=== PATIENT | female | born 1955 | race Caucasian/White ===

== ENCOUNTER 2019-09-09 14:56 | Outpatient (CLI) | payer OTHER, SELFPAY ==
--- NOTE | ~2019-09-09 | MR_ITS ---
EXAMINATION: MR thoracic spine wo/w con EXAM DATE: 09/09/2019 16:41 INDICATION: Cervical thoracic radiculopathy. TECHNIQUE: Multi-sequential, multiplanar MR images of the thoracic spine were obtained without contra st. Sagittal T1, T2, T2 fat saturation, axial T2 weighted images reviewed. Axial T1 weighted sequenc e. Patient was then injected with 10 mL Multihance intravenous contrast and reimaged. Postcontrast axial and sagittal T1-weighted fat saturation sequences were obtained. No prior study. FINDINGS: There is mild thoracic disc disease and facet arthropathy. The central canal and neural for amen are widely patent. The spinal cord signal intensity and intrinsic morphology is normal. Paraspin al soft tissue is unremarkable. There are no suspicious marrow signal abnormalities. The vertebral ysabel dies are aligned in the AP dimension. IMPRESSION: Mild thoracic spondylosis. Reviewed, dictated and finalized at location A. TIONAL PSYCHOLOGIST IMPRESSION: Mild thoracic spondylosis.
--- NOTE | ~2019-09-09 | MR_ITS ---
EXAMINATION: MR cervical spine wo/w con EXAM DATE: 09/09/2019 16:41 INDICATION: Neck pain. TECHNIQUE: Multi-sequential, multiplanar MR images of the cervical spine were obtained without contra st. Axial T2, axial T2 MERGE sequence. Sagittal T1, T2, T2 fat saturation images also obtained. Axi al T1 weighted sequence. Patient was then injected with 10 mL Multihance intravenous contrast and re imaged. Postcontrast axial and sagittal T1-weighted fat saturation sequences were obtained. There is no prior study for comparison. FINDINGS: There is moderate disc disease at C5-6, with 2 mm retrolisthesis. The vertebral body and d isc heights are otherwise well maintained. There is 2 mm anterolisthesis C6 on C7 and C7 on T1. There are 2 hemangiomas in the T1 vertebral body. Paraspinal soft tissue is unremarkable. The spinal cord signal intensity and intrinsic morphology is normal. Cervicomedullary junction is normal in appearanc e. There are no areas of abnormal enhancement on the post contrast images. Level by level evaluation: C2-C3: Disc does not extend beyond the endplate margin. Uncovertebral joint arthropathy: None. Facet joint arthropathy: Mild bilateral. Neural foraminal stenosis: No stenosis. Central canal stenosis: No stenosis. C3-C4: Disc does not extend beyond the endplate margin. Uncovertebral joint arthropathy: Mild right. Facet joint arthropathy: Mild to moderate right, mild left. Neural foraminal stenosis: Mild right. Central canal stenosis: No stenosis. C4-C5: Disc does not extend beyond the endplate margin. Uncovertebral joint arthropathy: Minimal bilateral. Facet joint arthropathy: Mild bilateral. Neural foraminal stenosis: No stenosis. Central canal stenosis: No stenosis. C5-C6: There is a mild diffuse disc bulge. Uncovertebral joint arthropathy: Moderate right, mild to moderate left. Facet joint arthropathy: Mild bilateral. Neural foraminal stenosis: Moderate right, mild to moderate left. Central canal stenosis: Mild. C6-C7: Disc does not extend beyond the endplate margin. Uncovertebral joint arthropathy: Mild bilateral. Facet joint arthropathy: Mild bilateral. Neural foraminal stenosis: Mild bilateral. Central canal stenosis: No stenosis. C7-T1: Disc does not extend beyond the endplate margin. Uncovertebral joint arthropathy: None. Facet joint arthropathy: Mild bilateral. Neural foraminal stenosis: Mild bilateral. Central canal stenosis: No stenosis. IMPRESSION: 1. C5-6 moderate disc disease and right neural foraminal stenosis. 2. Otherwise relatively mild cervical spondylosis. Reviewed, dictated and finalized at location B. ND OF THE COURT
[2019-09-09 15:39] LABS: Blood Urea Nitrogen 23 mg/dL (8-26); Estimated Glomerular Filt Rate > 60
== END 2019-09-09 14:57 | disposition home or self-care (01) ==
DX: M54.12 Radiculopathy, cervical region (principal); M54.14 Radiculopathy, thoracic region; M50.822 Other cervical disc disorders at C5-C6 level; M48.02 Spinal stenosis, cervical region; M47.812 Spondylosis without myelopathy or radiculopathy, cervical region; M47.814 Spondylosis without myelopathy or radiculopathy, thoracic region
CPT/HCPCS: 72156; 72157; A9577

== ENCOUNTER 2019-09-10 08:32 | Outpatient (CLI) | payer OTHER, SELFPAY ==
[2019-09-10 09:26] LABS: Add Urine Microscopic? YES; Appearance Urine Clear (Clear); Bilirubin Urine Negative (Negative); Blood Urine 1+ (Negative); Color Urine Straw (Yellow); Glucose Urine UA Negative (Negative); Ketones Urine Negative (Negative); Leukocyte Esterase Ur 3+ LEU/UL (Negative); Mucus Urine Rare /lpf; Nitrate Urine Negative (Negative); Protein Urine Negative (Negative); Specific Grav Ur 1.011 (1.001-1.035); Squamous Epithelial Cell Urine Rare /hpf (Few); Transitional Epi Cells Urine Rare /hpf (None Seen); Urobilinogen Urine Negative mg/dL (<2.0)
[2019-09-10 09:34] LABS: Basophils Percent Auto 0.4 % (0.2-1.2); Eosinophils Absolute Auto 0.4 K/mm3 (0-0.3); Eosinophils Percent Auto 5.5 % (0-4.4); Hematocrit 47.5 % (37.0-47.0); Hemoglobin 15.2 g/dL (12.0-15.0); Immature Granulocyte Absolute 0.03 K/mm3 (0.00-0.031); Immature Granulocyte Percent A 0.4 % (0-0.5); Lymphocytes Absolute Auto 2.13 K/mm3 (0.9-3.2); Lymphocytes Percent Auto 30.1 % (18.3-44.2); Mean Corpuscular Hemoglobin 29.9 pg (26-34); Mean Corpuscular Volume 93.5 fl (80-100); Mean Platelet Volume 10.9 fl (7.4-10.4); Monocytes Absolute Auto 0.4 K/mm3 (0.1-0.6); Monocytes Percent Auto 5.9 % (2.6-8.5); Neutrophils Absolute Auto 4.1 K/mm3 (1.3-6.7); Neutrophils Percent Auto 57.7 % (45.5-73.1); Platelet Count Result 262 k/mm3 (150-375); Red Blood Count 5.08 M/mm3 (4.2-5.4); Red Cell Distribution Width 13.1 % (11.5-14.5); White Blood Count 7.1 K/mm3 (4.5-10.0)
[2019-09-10 09:37] LABS: Alanine Aminotransferase 15 U/L (4-35); Albumin Level 4.1 g/dL (3.5-5.1); Alkaline Phosphatase 75 U/L (38-126); Aspartate Amino Transferase 25 U/L (14-36); Bilirubin,Total 0.8 mg/dL (0.2-1.3); Blood Urea Nitrogen 20 mg/dL (7-17); CRP < 0.5 mg/dL (<1.0); Calcium 9.4 mg/dL (8.4-10.2); Carbon Dioxide 31 mmol/L (22-30); Chloride 100 mmol/L (98-107); Cholesterol 200 mg/dL (0-200); Estimated Glomerular Filt Rate > 60; Glucose 84 mg/dL (65-105); HDL Direct 51 mg/dL; Sodium 139 mmol/L (137-145); Triglycerides 101 mg/dL (<150)
[2019-09-10 09:41] LABS: Immunoglobulin G 671 mg/dL (700-1600)
[2019-09-10 09:46] LABS: LDL Cholesterol Direct 125 mg/dL
[2019-09-10 10:05] LABS: Thyroid Stimulating Hormone 0.935 uIU/mL (0.465-4.680)
[2019-09-10 10:22] LABS: Rheumatoid Factor < 8.6 IU/ML (<12)
[2019-09-10 11:01] LABS: Erythrocyte Sedimentation Rate 4 mm/hr (0-20)
[2019-09-15 06:55] LABS: ANA Cascade Screen Positive (Negative)
[2019-09-15 10:06] LABS: Chromatin (Nucleosomal) Ab <1.0; Chromatin Antibody Charge YES; DNA (ds) Antibody Charge YES; RNP Antibody <1.0; RNP Antibody Charge YES; Sm Antibody <1.0; Sm Antibody Charge YES; Sm/RNP Antibody <1.0; Sm/RNP Antibody Charge YES
== END 2019-09-10 08:33 | disposition home or self-care (01) ==
PROVIDERS: PCP Family Medicine Sports Medicine; Visit Provider Family Medicine Sports Medicine
DX: E78.2 Mixed hyperlipidemia (principal); I10 Essential (primary) hypertension; G47.00 Insomnia, unspecified
CPT/HCPCS: 36415; 80053; 80061; 81001; 82784; 84443; 85025; 85652; 86038; 86140; 86225; 86235; 86430; 87086

== ENCOUNTER 2022-08-05 11:02 | Outpatient (CLI) | payer MEDICARE, SELFPAY ==
[2022-08-05 11:50] LABS: Hematocrit 44.4 % (37.0-47.0); Hemoglobin 14.6 g/dL (12.0-15.0); Mean Corpuscular HGB Conc 32.9 g/dl (32-36); Mean Corpuscular Volume 94.3 fl (80-100); Mean Platelet Volume 10.3 fl (7.4-10.4); Platelet Count Result 294 k/mm3 (150-375); Red Blood Count 4.71 M/mm3 (4.2-5.4); Red Cell Distribution Width 12.9 % (11.5-14.5); White Blood Count 9.3 K/mm3 (4.5-10.0)
[2022-08-05 11:57] LABS: Alanine Aminotransferase 17 U/L (6-35); Alkaline Phosphatase 91 U/L (38-126); Anion Gap 4 mmol/L (8-16); Aspartate Amino Transferase 27 U/L (14-36); Bilirubin,Total 0.4 mg/dL (0.2-1.3); Blood Urea Nitrogen 15 mg/dL (7-17); Calcium 8.7 mg/dL (8.4-10.2); Carbon Dioxide 27 mmol/L (22-30); Chloride 108 mmol/L (98-107); Estimated Glomerular Filt Rate > 60; Glucose 79 mg/dL (65-110); Potassium 4.1 mmol/L (3.4-5.0); Sodium 139 mmol/L (137-145)
[2022-08-08 18:04] LABS: Gliadin AB, IgG <1.0 U/mL (<15.0); TTG IGA AB <1.0 U/mL (<15.0)
== END 2022-08-05 11:03 | disposition home or self-care (01) ==
PROVIDERS: PCP Family Medicine Sports Medicine; Visit Provider Nurse Practitioner
DX: R13.10 Dysphagia, unspecified (principal); R14.0 Abdominal distension (gaseous); K21.9 Gastro-esophageal reflux disease without esophagitis; R10.31 Right lower quadrant pain; R10.32 Left lower quadrant pain
CPT/HCPCS: 36415; 80053; 83516; 85027; 86255

== ENCOUNTER 2022-09-05 00:41 | Day surgery (SDC) | payer MEDICARE, SELFPAY ==
[2022-08-28 13:35] VITALS: BMI 27.3
[2022-09-05 11:33] VITALS: BP 147/98; PULSE 85; RESP 20; TEMP 36.3; O2SAT 98
[2022-09-05] MEDS: LACTATED RINGERS 1,000 ML 150 ML IV CONT (11:49)
--- NOTE | 2022-09-05 11:53 | WPDANESEPPF ---
Anes - Initial Pre Proc Eval Procedure: Operation Date: 09/05/22 13:00 Proposed Procedures p Esophagogastroduodenoscopy & Colonoscopy - Jewel Bunn MD Date/Time: 09/05/22 11:53 Surgeon: Jewel Bunn MD Pre Op Diagnosis: LLQP, RLQP, abd.distension,dysphagia Patient Data Age: 67 Gender: F Height: 1.6 m Weight: 66.3 kg Last Vital Signs Temp 36.3 C L 09/05/22 11:33 Pulse 85 09/05/22 11:33 Resp 20 09/05/22 11:33 BP 147/98 H 09/05/22 11:33 Pulse Ox 98 09/05/22 11:33 O2 Del Method Room Air 09/05/22 11:33 Allergies Allergy/AdvReac Type Severity Reaction Status Date / Time No Known Allergies Allergy Verified 09/05/22 11:32 Home Medications Medication Instructions Recorded Confirmed Type albuterol sulfate 8 mg 8 mg PO Q12H 08/05/22 08/28/22 History tablet,extended release,12 hr dicyclomine 20 mg tablet 20 mg PO QID #120 tabs 08/05/22 08/28/22 Rx gabapentin 600 mg tablet 600 mg PO DAILY 08/05/22 08/28/22 History hydrocodone bitartrate 10 mg 10 mg PO Q12H 08/05/22 08/28/22 History capsule, oral only, extended rel 12 hr ibuprofen 800 mg tablet 800 mg PO .prn 08/05/22 08/28/22 History lisinopril 10 mg tablet 10 mg PO DAILY 08/05/22 08/28/22 History lovastatin 40 mg tablet 40 mg PO DAILY 08/05/22 08/28/22 History omeprazole 40 mg capsule,delayed 40 mg PO DAILY #30 caps 08/05/22 08/28/22 Rx release Patient hx anesthesia problems: none Family hx anesthesia problems: none Results Review: All pre-operative results and documents have been reviewed as part of the pre-operative evaluation. [facility] Past Medical History Medical History Abdominal distension Bilateral lower abdominal cramping Dysphagia GERD (gastroesophageal reflux disease) Hypertension Obesity Oropharyngeal dysphagia Tobacco abuse Surgical History Surgical History History of tonsillectomy Family History Family History Mother Hypertension Heart disease Social History Social History Smoking packs per day: 0.5 Smoking cigarettes per day: 10.0 Years smoked: 30 Smoking pack-years: 15.00 Smoking status: Current every day smoker Tobacco type: cigarettes Second hand tobacco smoke exposure: Yes Alcohol intake: never Substance use: current Substance use type: marijuana Living arrangements: alone Occupation/Education: occupation Gender identity (if verbalized by the patient): Female Spiritual care concerns: No Anes - Eval Final PreProcedure Day of Procedure 09/05/22 11:53 Patient weight: overweight Heart: regular rate and rhythm Lungs: clear to auscultation Airway: Mallampati scale class II Neurological: alert and oriented Last oral intake: >/= 8 hours ASA classification: III Emergent: no Anesthetic plan: proceed Anesthesia type and monitoring: general GIVS and standard monitoring Results Review: All pre-operative results and documents have been reviewed as part of the pre-operative evaluation. Informed Consent: The patient's anesthetic plan and its attendant risks and benefits were discussed with the patient/family/POA. Questions were solicited and answers provided to the satisfaction of the patient/family/POA.
--- NOTE | 2022-09-05 12:36 | WPDHPUPDATE1 ---
History and Physical Update Update Date/Time: 09/05/22 12:36 History and Physical has been reviewed, including an updated exam of the patient. There are NO changes in the patient's condition. Risks, benefits, and alternatives have been discussed and questions answered. Patient agrees to proceed with procedure.
--- NOTE | 2022-09-05 12:58 | SUR.OPER ---
egd ended at 1252, colonoscopy begun at 1257.
[2022-09-05 13:09] VITALS: BP 132/91; PULSE 95; RESP 16; O2SAT 96
[2022-09-05 13:19] VITALS: BP 109/70; PULSE 90; RESP 20; O2SAT 98
[2022-09-05 13:29] VITALS: BP 104/87; PULSE 90; RESP 22; O2SAT 100
== END 2022-09-05 13:45 | disposition home or self-care (01) ==
PROVIDERS: PCP Family Medicine Sports Medicine; Visit Provider Internal Medicine Gastroenterology
PROC: 0DJ08ZZ Inspection of Upper Intestinal Tract, Via Natural or Artificial Opening Endoscopic (ICD-10-PCS; CPT 43235; principal; 2022-09-05 13:00)
DX: Z12.11 Encounter for screening for malignant neoplasm of colon (principal); K57.30 Diverticulosis of large intestine without perforation or abscess without bleeding; K64.8 Other hemorrhoids; K64.4 Residual hemorrhoidal skin tags; R10.30 Lower abdominal pain, unspecified; R13.10 Dysphagia, unspecified; K21.9 Gastro-esophageal reflux disease without esophagitis; Z79.51 Long term (current) use of inhaled steroids; I10 Essential (primary) hypertension; F17.210 Nicotine dependence, cigarettes, uncomplicated; F12.90 Cannabis use, unspecified, uncomplicated
CPT/HCPCS: 43239; G0121; 88305; J2704; J7120

== ENCOUNTER 2022-11-07 09:36 | Outpatient (CLI) | payer MEDICARE, SELFPAY ==
--- NOTE | ~2022-11-07 | XR_ITS ---
MODIFIED ESOPHAGRAM HISTORY: Dysphagia. TECHNIQUE: Modified barium esophagram was performed by speech pathologist under radiologist fluorosco pic guidance. This was recorded on tape. The exam was reviewed on 11/07/2022 10:54 CDT. The DAP for this procedure was 1.655 Gycm2. Fluoroscopy time is 2 minutes. FINDINGS: Lateral projection of the cervical spine demonstrates normal cervical alignment.. There a re episodes of penetration with thin liquids. No aspiration identified.. 20 one images. IMPRESSION: 1: Laryngeal penetration without aspiration with thin liquids. 2: Please refer to speech pathologist report for additional detail. Reviewed, dictated and finalized at location A.
--- NOTE | 2022-11-07 15:27 | REHSTMBS ---
Assessment and note entered by Salima Arias, MACHINE I ENGRAVER Modified Barium Swallow Evaluation Feeding Type Recommended Oral Food Consistency Regular, Level 7 Liquid Consistency Thin (0) ST Clinical Summary MODIFIED BARIUM SWALLOW STUDY This patient was seen for a Modified Barium Swallow study at the request of her physician. Patient reports sometimes becoming choked when eating or drinking. The patient was presented with thin liquid per spoon, cup, and straw, applesauced mixed with semis-olid contrast medium, and then brian cracker pieces and fruit pieces both coated with the semi-solid mixture. Patient exhibited adequate swallows on all consistencies except for inconsistent trace penetration into the airway on uncontrolled thin liquid with cough reflex present. Head flexion prevented further penetration. Patient was instructed in the use of head flexion to facilitate the prevention of penetration. She does not appear to have significant enough issues to warrant direct Speech Therapy however if patient and physician both feel patient is ready for swallowing strengthening exercises, it may be ordered. Thank you for this referral.
== END 2022-11-07 09:37 | disposition home or self-care (01) ==
PROVIDERS: PCP Family Medicine Sports Medicine; Visit Provider Nurse Practitioner
DX: R13.12 Dysphagia, oropharyngeal phase (principal)
CPT/HCPCS: 92611

== ENCOUNTER 2024-05-20 10:24 | Inpatient (IN) | payer MEDICARE, SELFPAY ==
--- NOTE | ~2024-05-20 | CT_ITS ---
EXAMINATION: CT abdomen pelvis w con DATE: 05/20/2024 13:29 INDICATION: Upper abdominal pain. TECHNIQUE: Computed tomography (CT) of the abdomen and pelvis was performed with 100 mL Omnipaque 350 intravenous contrast. Automated exposure control and iterative reconstruction technique were employe d. The dose-length product was 501.05 mGy-cm. COMPARISON: None. FINDINGS: The visualized portions of the lung bases demonstrate mild atelectasis. A calcified right l robert nodule is consistent with old granulomatous disease. No pleural effusion. The heart size is jeffery l. No pericardial effusion. The liver and gallbladder are normal. Calcifications in the spleen are co nsistent with old granulomatous disease. The pancreas and adrenal glands are normal. There are cysts in the kidneys measuring up to 10 mm on the right. There is a striated nephrogram in left kidney, con sistent with pyelonephritis. There are bilateral inguinal hernias containing fat. There is diverticul osis of the colon without evidence of diverticulitis. There are no dilated loops of bowel. The append ix is normal. There is calcified atherosclerosis of the aorta and many of the other arteries. There a re no pathologically enlarged lymph nodes. There is no free intraperitoneal fluid. There is mild thor acic and lumbar spondylosis. IMPRESSION: 1. Left-sided acute pyelonephritis. Reviewed, dictated and finalized at location B.
[2024-05-20 10:36] VITALS: BP 126/80; PULSE 103; RESP 16; TEMP 36.6; O2SAT 95
--- NOTE | 2024-05-20 12:12 | ED_ITS ---
HPI - Abdominal Pain General Chief Complaint: Abdominal Pain Stated Complaint: abd pain Time Seen by Provider: 05/20/24 12:12 Focused HPI: This is a 69 year old female that presents to the ER for abdominal pain and nausea. Reports ongoing over the last 2 weeks. She has been treated for UTI with several antibiotics with little relief. Denies fever, dysuria, or vomiting GENERAL: Well-appearing, well-nourished, and in no acute distress. HEAD: Normocephalic, atraumatic. CHEST: No respiratory distress. HEART: Regular rate NEURO: ?Alert and oriented x3. Patient screened in triage and initial orders placed.? ?Additional care and disposition to be based upon?diagnostic testing and treatment. Related Data Home Medications Medication Instructions Recorded Confirmed gabapentin 600 mg tablet 600 mg PO DAILY 08/05/22 01/29/24 hydrocodone bitartrate 10 mg 10 mg PO Q12H 08/05/22 01/29/24 capsule, oral only, extended rel 12 hr ibuprofen 800 mg tablet 800 mg PO .prn 08/05/22 01/29/24 lisinopril 10 mg tablet 10 mg PO DAILY 08/05/22 01/29/24 albuterol sulfate 0.63 mg/3 mL 0.63 mg inhalation Q6H 01/29/24 01/29/24 solution for nebulization Allergies Allergy/AdvReac Type Severity Reaction Status Date / Time No Known Allergies Allergy Verified 01/29/24 11:34 [facility] Past Medical History Medical History Abdominal distension Abnormal barium swallow Bilateral lower abdominal cramping Colon cancer screening Diverticulosis Dysphagia GERD (gastroesophageal reflux disease) Hypertension IBS (irritable bowel syndrome) Lymphadenopathy of right cervical region Obesity Oropharyngeal dysphagia Tobacco abuse Surgical History Surgical History History of tonsillectomy Family History Family History Mother Hypertension Heart disease Diabetes mellitus Sibling Cancer Social History Social History Smoking packs per day: 0.5 Smoking cigarettes per day: 10.0 Years smoked: 30 Smoking pack-years: 15.00 Smoking status: Current every day smoker Tobacco type: cigarettes Second hand tobacco smoke exposure: Yes Alcohol intake: never Substance use: current Substance use type: marijuana Living arrangements: alone Occupation/Education: occupation Gender identity (if verbalized by the patient): Female Spiritual care concerns: No Course Vital Signs Vital signs: Vital Signs Temperature 97.8 F 05/20/24 10:36 Pulse Rate 103 H 05/20/24 10:36 Respiratory Rate 16 05/20/24 10:36 Blood Pressure 126/80 05/20/24 10:36 Pulse Oximetry 95 05/20/24 10:36 Oxygen Delivery Room Air 05/20/24 10:36 Temperature 97.8 F 05/20/24 10:36 Pulse Rate 103 H 05/20/24 10:36 Respiratory Rate 16 05/20/24 10:36 Blood Pressure 126/80 05/20/24 10:36 Pulse Oximetry 95 05/20/24 10:36 Oxygen Delivery Room Air 05/20/24 10:36 Discharge Plan Discharge Instructions: Antibiotic Form Prescriptions: No Action hydrocodone bitartrate 10 mg capsule, oral only, ER 12hr 10 mg PO Q12H gabapentin 600 mg tablet 600 mg PO DAILY Patient Comments: pt states tid as needed lisinopril 10 mg tablet 10 mg PO DAILY ibuprofen 800 mg tablet 800 mg PO .prn albuterol sulfate 0.63 mg/3 mL solution for nebulization 0.63 mg inhalation Q6H omeprazole 40 mg capsule,delayed release(DR/EC) 40 mg PO BID Qty: 60 3RF doxycycline hyclate 100 mg capsule 100 mg PO BID Qty: 14 0RF ondansetron 4 mg tablet,disintegrating See Rx Instructions .ROUTE .COMPLEX Qty: 20 0RF Dose Instruction: DISSOLVE 1 TABLET ON THE TONGUE EVERY 6 HOURS NEEDED FOR NAUSEA OR VOMITING Rx Instructions: DISSOLVE 1 TABLET ON THE TONGUE EVERY 6 HOURS NEEDED FOR NAUSEA OR VOMITIN G Follow-up/Referrals: Cassidy,Doug Allen MD [Primary Care Provider] -
--- NOTE | 2024-05-20 12:22 | ED.ABDPAIN ---
HPI - Abdominal Pain General Chief Complaint: Abdominal Pain Stated Complaint: abd pain Time Seen by Provider: 05/20/24 12:12 Source: patient and family Mode of arrival: ambulatory Limitations: no limitations History of Present Illness HPI narrative: 69 years old white female came to the ED by private car complaining of suprapubic pain, right lower quadrant pain associated with nausea started 3 months ago was seen by family physician, diagnosis of urinary tract infection, no improvement after 2 courses of antibiotic. Started yesterday on amoxicillin. History of hypertension, hyperlipidemia, cigarette smoking, denies any history of abdominal surgery. Related Data Home Medications Medication Instructions Recorded Confirmed gabapentin 600 mg tablet 600 mg PO DAILY 08/05/22 01/29/24 hydrocodone bitartrate 10 mg 10 mg PO Q12H 08/05/22 01/29/24 capsule, oral only, extended rel 12 hr ibuprofen 800 mg tablet 800 mg PO .prn 08/05/22 01/29/24 lisinopril 10 mg tablet 10 mg PO DAILY 08/05/22 01/29/24 albuterol sulfate 0.63 mg/3 mL 0.63 mg inhalation Q6H 01/29/24 01/29/24 solution for nebulization Allergies Allergy/AdvReac Type Severity Reaction Status Date / Time No Known Allergies Allergy Verified 01/29/24 11:34 Review of Systems Review of Systems: All systems reviewed & are unremarkable except as noted in HPI and below PMFSH Past Medical History Medical History Abdominal distension Abnormal barium swallow Bilateral lower abdominal cramping Colon cancer screening Diverticulosis Dysphagia GERD (gastroesophageal reflux disease) Hypertension IBS (irritable bowel syndrome) Lymphadenopathy of right cervical region Obesity Oropharyngeal dysphagia Tobacco abuse Surgical History Surgical History History of tonsillectomy Family History Family History Mother Hypertension Heart disease Diabetes mellitus Sibling Cancer Social History Social History Smoking packs per day: 0.5 Smoking cigarettes per day: 10.0 Years smoked: 30 Smoking pack-years: 15.00 Smoking status: Current every day smoker Tobacco type: cigarettes Second hand tobacco smoke exposure: Yes Alcohol intake: never Substance use: current Substance use type: marijuana Living arrangements: alone Occupation/Education: occupation Gender identity (if verbalized by the patient): Female Spiritual care concerns: No Exam Narrative: General appearance: Well-developed, well-nourished Skin: Normal color Head: Normocephalic, nontraumatic Eyes: Clear conjunctiva ENT: Oropharynx normal, ears normal, nose normal Neck: Supple, nontender Chest and respiratory: Airway patent, no respiratory distress, no accessory muscle use Heart: Regular rate/rhythm Abdomen: Soft, suprapubic tenderness, right lower quadrant tenderness, no guarding or rebound r, no organomegaly, quiet bowel sounds Vascular: Normal peripheral pulses, normal capillary refill. Musculoskeletal: Normal range of motion, nontender back Neurologic: Alert and oriented ?3, TELEGRAPHIC INSTRUMENT SUPERVISOR is normal as tested, no gross motor deficit Course Vital Signs Vital signs: Vital Signs Temperature 36.6 C 05/20/24 10:36 Pulse Rate 103 H 05/20/24 10:36 Respiratory Rate 16 05/20/24 10:36 Blood Pressure 126/80 05/20/24 10:36 Pulse Oximetry 95 05/20/24 10:36 Oxygen Delivery Room Air 05/20/24 10:36 Temperature 36.6 C 05/20/24 10:36 Pulse Rate 62 05/20/24 13:54 Respiratory Rate 16 05/20/24 13:54 Blood Pressure 119/63 05/20/24 13:54 Pulse Oximetry 98 05/20/24 13:54 Oxygen Delivery Room Air 05/20/24 10:36 MDM - Abdominal Pain MDM Narrative Medical decision making narrative: Patient presents with suprapubic and right lower quadrant pain Vital signs showing heart rate of 103, Physical examination showing tenderness right lower quadrant and suprapubic area Differential diagnosis include urinary tract infection, appendicitis, diverticulitis, colitis, constipation, or kidney stone Blood workup today showed WBC of 14.0 Urinalysis showed evidence of infection Patient started on Rocephin IV, Admit to hospitalist for pyelonephritis, failed outpatient treatment Differential Diagnosis Differential diagnosis: Likely other (As above) Medical Records Attestation: I reviewed the patient's medical records. Lab Data Attestation: I reviewed the patient's lab results. 05/20/24 12:30 05/20/24 12:30 Labs: Lab Results 05/20/24 05/20/24 Range/Units 12:30 12:50 WBC 14.0 H (4.5-10.0) K/mm3 RBC 4.51 (4.2-5.4) M/mm3 Hgb 14.2 (12.0-15.0) g/dL Hct 41.6 (37.0-47.0) % MCV 92.2 (80-100) fl MCH 31.5 (26-34) pg MCHC 34.1 (32-36) g/dl RDW 13.1 (11.5-14.5) % Plt Count 326 (150-375) k/mm3 MPV 9.9 (7.4-10.4) fl Immature Gran % (Auto) 0.6 H (0-0.5) % Neut % (Auto) 75.2 H (45.5-73.1) % Lymph % (Auto) 15.7 L (18.3-44.2) % [place] % (Auto) 7.9 (2.6-8.5) % Eos % (Auto) 0.3 (0-4.4) % Baso % (Auto) 0.3 (0.2-1.2) % Lymph # (Auto) 2.20 (0.9-3.2) K/mm3 [place] # (Auto) 1.1 H (0.1-0.6) K/mm3 Eos # (Auto) 0.0 (0-0.3) K/mm3 Baso # (Auto) 0.0 (0.0-0.1) K/mm3 Abs Immat Gran (auto) 0.08 H (0.00-0.031) K/mm3 Absolute Neuts (auto) 10.5 H (1.3-6.7) K/mm3 Absolute Nucleated RBC 0.000 (0.0-0.012) K/mm3 Nucleated RBC % 0.0 (0.0-0.2) % Sodium 135 L (137-145) mmol/L Potassium 3.7 (3.4-5.0) mmol/L Chloride 99 (98-107) mmol/L Carbon Dioxide 25 (22-30) mmol/L Anion Gap 11 (4-12) mmol/L BUN 19 H (7-17) mg/dL Creatinine 0.70 (0.7-1.0) mg/dL Estim Creat Clear Calc 61 ml/min Estimated GFR > 60 (59 - ) Glucose 131 H (65-110) mg/dL Lactic Acid 0.7 (0.7-2.0) mmol/L Calcium 9.0 (8.4-10.2) mg/dL Total Bilirubin 0.9 (0.2-1.3) mg/dL AST 26 (14-36) U/L ALT 18 (6-35) U/L Alkaline Phosphatase 120 (38-126) U/L Total Protein 7.0 (6.3-8.2) g/dL Albumin 4.1 (3.5-5.1) g/dL Urine Color Dark yellow (Yellow) Urine Appearance Cloudy H (Clear) Urine pH 5.5 (5.0-9.0) Ur Specific [place] 1.027 (1.001-1.035) Urine Protein 2+ H (Negative) mg/dL Urine Glucose (UA) Negative (Negative) mg/dL Urine Ketones 2+ H (Negative) mg/dL Ur Blood (Man) 3+ H (Negative) Urine Nitrate Negative (Negative) Urine Bilirubin 2+ H (Negative) Urine Urobilinogen 1.0 (<2.0) mg/dL Add Ur Microanalysis Reviewed Leukocyte Esterase Rfl 1+ H (Negative) NIRU/UL Urine RBC 51-100 H (0-2) /hpf Urine WBC 21-50 H (0-3) /hpf Ur Squamous Epith Cells Few (Few) /hpf Urine Bacteria None seen /hpf Urine Casts 3-5 Urine Mucus Present /lpf Imaging Data Radiologist's impression: ITS Impressions Abdomen/Pelvis CT 05/20/24 13:42 IMPRESSION: 1. Left-sided acute pyelonephritis. Critical Care Time Critical Care Time Critical Care Time: No Discharge Plan Discharge Clinical Impression: Acute pyelonephritis, Failure of outpatient treatment Patient Disposition: Still a Patient Condition: Stable Instructions: Antibiotic Form Prescriptions: No Action hydrocodone bitartrate 10 mg capsule, oral only, ER 12hr 10 mg PO Q12H gabapentin 600 mg tablet 600 mg PO DAILY Patient Comments: pt states tid as needed lisinopril 10 mg tablet 10 mg PO DAILY ibuprofen 800 mg tablet 800 mg PO .prn albuterol sulfate 0.63 mg/3 mL solution for nebulization 0.63 mg inhalation Q6H omeprazole 40 mg capsule,delayed release(DR/EC) 40 mg PO BID Qty: 60 3RF doxycycline hyclate 100 mg capsule 100 mg PO BID Qty: 14 0RF ondansetron 4 mg tablet,disintegrating See Rx Instructions .ROUTE .COMPLEX Qty: 20 0RF Dose Instruction: DISSOLVE 1 TABLET ON THE TONGUE EVERY 6 HOURS NEEDED FOR NAUSEA OR VOMITING Rx Instructions: DISSOLVE 1 TABLET ON THE TONGUE EVERY 6 HOURS NEEDED FOR NAUSEA OR VOMITING Follow-up/Referrals: Cassidy,Doug Allen MD [Primary Care Provider] -
[2024-05-20 12:41] LABS: Basophils Percent Auto 0.3 % (0.2-1.2); Eosinophils Percent Auto 0.3 % (0-4.4); Hematocrit 41.6 % (37.0-47.0); Hemoglobin 14.2 g/dL (12.0-15.0); Immature Granulocyte Absolute 0.08 K/mm3 (0.00-0.031); Immature Granulocyte Percent A 0.6 % (0-0.5); Lymphocytes Percent Auto 15.7 % (18.3-44.2); Mean Corpuscular HGB Conc 34.1 g/dl (32-36); Mean Corpuscular Hemoglobin 31.5 pg (26-34); Mean Corpuscular Volume 92.2 fl (80-100); Mean Platelet Volume 9.9 fl (7.4-10.4); Monocytes Absolute Auto 1.1 K/mm3 (0.1-0.6); Monocytes Percent Auto 7.9 % (2.6-8.5); Neutrophils Absolute Auto 10.5 K/mm3 (1.3-6.7); Neutrophils Percent Auto 75.2 % (45.5-73.1); Platelet Count Result 326 k/mm3 (150-375); Red Blood Count 4.51 M/mm3 (4.2-5.4); Red Cell Distribution Width 13.1 % (11.5-14.5)
[2024-05-20] MEDS: SODIUM CHLORIDE 0.9% IV 1,000 ML 999 ML IV CONT (12:50)
[2024-05-20] MEDS: ONDANSETRON INJ 4 MG/2 ML VIAL IV PUSH (12:50)
[2024-05-20 12:51] LABS: Lactic Acid Reflex 0.7 mmol/L (0.7-2.0)
[2024-05-20] MEDS: HYDROmorphone HCL INJ (*CRX) 1 MG/ML SYR 0.5 MG IV PUSH (12:51)
[2024-05-20 12:52] LABS: Alanine Aminotransferase 18 U/L (6-35); Albumin Level 4.1 g/dL (3.5-5.1); Alkaline Phosphatase 120 U/L (38-126); Anion Gap 11 mmol/L (4-12); Aspartate Amino Transferase 26 U/L (14-36); Bilirubin,Total 0.9 mg/dL (0.2-1.3); Blood Urea Nitrogen 19 mg/dL (7-17); Carbon Dioxide 25 mmol/L (22-30); Chloride 99 mmol/L (98-107); Estimated CRCL calculation 61 ml/min; Estimated Glomerular Filt Rate > 60; Glucose 131 mg/dL (65-110); Potassium 3.7 mmol/L (3.4-5.0); Sodium 135 mmol/L (137-145)
[2024-05-20 13:10] LABS: Add Urine Microscopic? YES; Appearance Urine Cloudy (Clear); Bacteria Urine None Seen /hpf; Bilirubin Urine 2+ (Negative); Blood Urine 3+ (Negative); Color Urine Dark Yellow (Yellow); Glucose Urine UA Negative (Negative); Ketones Urine 2+ mg/dL (Negative); Leukocyte Esterase Ur 1+ LEU/UL (Negative); Mucus Urine Present /lpf; Need Manual Microscopic Reviewed; Nitrate Urine Negative (Negative); Protein Urine 2+ mg/dL (Negative); RBC Urine 51-100 /hpf (0-2); Specific Grav Ur 1.027 (1.001-1.035); Squamous Epithelial Cell Urine Few /hpf (Few); WBC Urine 21-50 /hpf (0-3); pH Urine 5.5 (5.0-9.0)
[2024-05-20 13:54] VITALS: BP 119/63; PULSE 62; RESP 16; O2SAT 98
--- NOTE | 2024-05-20 16:10 | PM.IMHP ---
H&P: HPI History of Present Illness Date/Time: 05/20/24 16:10 Chief Complaint: Abdominal Pain Narrative: 69 y/o F presents here with abdominal pain with PMH of GERD, HTN, IBS, and diverticulosis. The patient presents here from home for further evaluation of abdominal pain. She reports the abdominal pain has been present for the past 3 months. She describes it as lower, right sided, nonradiating, intermittent, aggravated by eating, and alleviated by not eating. Of note, she has been on 3 rounds of antibiotics for a UTI including Cefdinir 300 mg b.i.d. x7 days on 04/14/2024, Doxycycline 100 mg b.i.d. x7 days on 04/22/2024 for an ENT issue, Bactrim 800-160 b.i.d. x7 days on 05/09/2024, Augmentin 875-125 b.i.d. x7 days prescribed on 05/19/2024. Patient has taken 2 doses of Augmentin. Endorsing chills, dysuria, urinary frequency. Denies fever or body aches. Also endorsing mild intermittent nausea with eating that would resolve with Zofran. Initial VS at presentation: 97.8? F, HR 103, RR 16, 126/80, and 95% on RA. ED workup showed: WBC 14.0, no anemia, sodium 135, creatinine 0.7 and GFR >60, glucose 131, lactic 0.7, and UA consistent with UTI. CT of the abdomen/pelvis showed left-sided acute pyelonephritis. Review of Systems Review of Systems: All systems reviewed & are unremarkable except as noted in HPI and below [facility] Past Medical History Medical History (Updated 05/20/24 @ 16:36 by Argelia Garza APRN) Abnormal barium swallow Arthritis Chronic sinusitis Diverticulosis Dysphagia GERD (gastroesophageal reflux disease) HLD (hyperlipidemia) Hypertension IBS (irritable bowel syndrome) Obesity Oropharyngeal dysphagia Tobacco abuse Surgical History Surgical History (Updated 05/20/24 @ 16:35 by Argelia Garza APRN) History of tonsillectomy History of tubal ligation Family History Family History Mother Hypertension Heart disease Diabetes mellitus Sibling Cancer Social History Social History Smoking packs per day: 0.5 Smoking cigarettes per day: 10.0 Years smoked: 30 Smoking pack-years: 15.00 Smoking status: Current some day smoker Tobacco type: cigarettes Second hand tobacco smoke exposure: Yes Alcohol intake: never Substance use: current Substance use type: other Other substance usage details: gummies for pain Do You Feel Safe in your Home?: Yes Lack of Transportation: No Lack of Food: Never True Current Housing: I Have Housing Concerned About Future Housing: No Difficulty Paying Gas/Electric Bills: No Difficulty Paying for Meds: No Currently Unemployed: No Education: High School Diploma/GED Difficulty w/ Childcare or Family Care: No Living arrangements: alone Occupation/Education: occupation Gender identity (if verbalized by the patient): Female Spiritual care concerns: No Meds Home Medications and Allergies Home Medications Medication Instructions Recorded Confirmed Type gabapentin 600 mg tablet 600 mg PO DAILY 08/05/22 05/20/24 History hydrocodone bitartrate 10 mg 10 mg PO Q12H 08/05/22 05/20/24 History capsule, oral only, extended rel 12 hr lisinopril 10 mg tablet 10 mg PO DAILY 08/05/22 05/20/24 History omeprazole 40 mg capsule,delayed 40 mg PO BID #60 caps 09/08/23 05/20/24 Rx release doxycycline hyclate 100 mg capsule 100 mg PO BID #14 caps 12/01/23 05/20/24 Rx albuterol sulfate 0.63 mg/3 mL 0.63 mg inhalation Q6H 01/29/24 05/20/24 History solution for nebulization amoxicillin 875 mg-potassium 1 tablet PO BID 05/20/24 05/20/24 History clavulanate 125 mg tablet Allergies Allergy/AdvReac Type Severity Reaction Status Date / Time ciprofloxacin [From Cipro] Allergy Hives Verified 05/20/24 17:05 Vital Signs Vital Signs - 24 hr 05/20/24 10:36 05/20/24 13:54 Temperature 97.8 F Pulse Rate 103 H 62 Respiratory Rate 16 16 Blood Pressure 126/80 119/63 Pulse Oximetry 95 98 Oxygen Delivery Room Air Exam Const: General: comfortable and no acute distress Other: , female, nontoxic appearance HENMT: Face/Nose/Sinus: Normal nares present Mouth: Yes moist mucous membranes Eyes: General: appearance normal, both eyes and all related structures Sclera: sclerae normal Pupils: Equal, round and reactive pupils present EOM: EOMs intact bilaterally Resp: Effort & Inspection: normal respiratory effort Auscultation: clear to auscultation bilaterally Cardio: Rate: regular rate Rhythm: regular rhythm Other: S1-S2 present without murmur, rub, ectopy GI: Other: Abdomen soft, nondistended, RLQ tenderness. Normoactive bowel sounds in all quadrants. Skin: General skin exam: normal color and no rashes or lesions noted Wounds: no wounds Neuro: Speech: normal speech Motor exam (neuro): 5/5 motor strength present throughout Sensory Exam: normal sensation Other: A&O x4 Extrem: General: normal to inspection Psych: Mental Status: mental status grossly normal Affect: normal affect Other: Good insight judgment, pleasant H&P: Results Labs Labs: Short CBC 05/20/24 Range/Units 12:30 WBC 14.0 H (4.5-10.0) K/mm3 Hgb 14.2 (12.0-15.0) g/dL Hct 41.6 (37.0-47.0) % Plt Count 326 (150-375) k/mm3 BMP 05/20/24 12:30 Sodium 135 L Potassium 3.7 Chloride 99 Carbon Dioxide 25 BUN 19 H Creatinine 0.70 Glucose 131 H Calcium 9.0 Liver Function 05/20/24 Range/Units 12:30 Total Bilirubin 0.9 (0.2-1.3) mg/dL AST 26 (14-36) U/L ALT 18 (6-35) U/L Alkaline Phosphatase 120 (38-126) U/L Albumin 4.1 (3.5-5.1) g/dL Urine 05/20/24 Range/Units 12:50 Urine Color Dark yellow (Yellow) Urine Appearance Cloudy H (Clear) Urine pH 5.5 (5.0-9.0) Ur Specific [place] 1.027 (1.001-1.035) Urine Protein 2+ H (Negative) mg/dL Urine Glucose (UA) Negative (Negative) mg/dL Assessment and Plan Assessment and plan (1) SIRS (systemic inflammatory response syndrome): Code(s): R65.10 - Systemic inflammatory response syndrome (SIRS) of non-infectious origin without acute organ dysfunction Status: Acute Assessment and Plan: - meets SIRS criteria: HR, WBC - lactic acid: 0.7 - 30 mL/kg = 2000, 1 L bolus given with maintenance fluids initiated - suspected source: Pyelonephritis - started on cefepime on 05/20 - blood cultures drawn on 05/20, follow - UA consistent with UTI and imaging showed left-sided acute pyelonephritis. (2) Acute pyelonephritis: Code(s): N10 - Acute pyelonephritis Status: Acute Assessment and Plan: - UA: Cloudy, 2+ protein, 2+ ketones, 3+ blood, 2+ bilirubin, 1+ leuks, 5120 RBC, 21-50 WBC, few epithelial cells, no bacteria - UC pending - previous micro reviewed - started on Ceftriaxone, transitioned to cefepime on 05/20 given patient has failed to oral outpatient antibiotic courses after speaking with ID pharmacist. - IV fluids, DC when appropriate (3) Hypertension: Qualifiers: Hypertension type: primary hypertension Qualified Code(s): I10 - Essential (primary) hypertension Code(s): I10 - Essential (primary) hypertension Status: Chronic Assessment and Plan: - chronic, currently 120/88 - home medications: continue lisinopril 10 mg daily - monitor Plan Diet: Heart healthy GI Prophylaxis: Not currently indicated DVT Prophylaxis: SCDs Lines: Peripheral Code Status: Full code Quality VTE Prophylaxis VTE prophylaxis: mechanical ordered Hospitalist MIPS Advance Care Plan I have confirmed that the patient's Advanced Care Plan is present, code status is documented, or surrogate decision maker is listed in patient medical record.: Yes Medication Reconciliation I have utilized all available resources to obtain, update and review the patients current medications (includes all prescriptions, OTC, herbals, cannabis, and nutritional supplements).: Yes
[2024-05-20 16:16] VITALS: BP 110/70; PULSE 81; RESP 16; TEMP 36.8; O2SAT 97
[2024-05-20 16:30] VITALS: BP 120/88; PULSE 80; RESP 16; TEMP 36.6; O2SAT 98
--- NOTE | 2024-05-20 16:31 | PC.NURSE ---
Dr. Hutchins declined blood cultures
[2024-05-20] MEDS: CEFEPIME 2 GM/NS 50 ML 2 GM/50 ML BAG IVPB (17:04)
[2024-05-20] MEDS: SODIUM CHLORIDE 0.9% IV 1,000 ML 125 ML IV CONT (17:04)
[2024-05-20 17:11] VITALS: BMI 27.1
[2024-05-20] MEDS: HYDROcodone/acetaminophen (*CRX) 5-325 MG TABLET 1 TAB PO (18:44)
[2024-05-20 21:11] VITALS: BP 124/62; PULSE 90; RESP 16; TEMP 36.3; O2SAT 95
[2024-05-21] MEDS: CEFEPIME 2 GM/NS 50 ML 2 GM/50 ML BAG IVPB ×4 (00:12→21:45)
[2024-05-21] MEDS: SODIUM CHLORIDE 0.9% IV 1,000 ML 125 ML IV CONT ×3 (01:31→20:35)
[2024-05-21 04:35] VITALS: BP 138/82; PULSE 86; RESP 18; TEMP 37; O2SAT 96
[2024-05-21] MEDS: HYDROcodone/acetaminophen (*CRX) 5-325 MG TABLET 1 TAB PO ×3 (06:53→19:22)
[2024-05-21 07:37] LABS: Basophils Percent Auto 0.4 % (0.2-1.2); Eosinophils Absolute Auto 0.2 K/mm3 (0-0.3); Hematocrit 38.3 % (37.0-47.0); Hemoglobin 12.7 g/dL (12.0-15.0); Immature Granulocyte Absolute 0.05 K/mm3 (0.00-0.031); Immature Granulocyte Percent A 0.6 % (0-0.5); Lymphocytes Absolute Auto 1.71 K/mm3 (0.9-3.2); Lymphocytes Percent Auto 19.1 % (18.3-44.2); Mean Corpuscular HGB Conc 33.2 g/dl (32-36); Mean Corpuscular Hemoglobin 31.4 pg (26-34); Mean Corpuscular Volume 94.6 fl (80-100); Monocytes Percent Auto 10.8 % (2.6-8.5); Neutrophils Percent Auto 67.1 % (45.5-73.1); Platelet Count Result 282 k/mm3 (150-375); Red Blood Count 4.05 M/mm3 (4.2-5.4); Red Cell Distribution Width 13.2 % (11.5-14.5)
[2024-05-21 08:02] LABS: Anion Gap 11 mmol/L (4-12); Blood Urea Nitrogen 12 mg/dL (7-17); Calcium 8.4 mg/dL (8.4-10.2); Carbon Dioxide 23 mmol/L (22-30); Chloride 104 mmol/L (98-107); Estimated CRCL calculation 83 ml/min; Estimated Glomerular Filt Rate > 60; Glucose 83 mg/dL (65-110); Lipase 37 U/L (23-300); Sodium 138 mmol/L (137-145)
[2024-05-21] MEDS: PANTOPRAZOLE 40 MG TABLET PO ×2 (08:55→16:18)
[2024-05-21] MEDS: lisinopriL 10 MG TABLET PO (08:55)
--- NOTE | 2024-05-21 08:57 | PM.IMPN ---
Progress Note: A&P Assessment and Plan (1) SIRS (systemic inflammatory response syndrome): Code(s): R65.10 - Systemic inflammatory response syndrome (SIRS) of non-infectious origin without acute organ dysfunction Status: Acute Assessment and Plan: - meets SIRS criteria: HR, WBC - lactic acid: 0.7 - 30 mL/kg = 2000, 1 L bolus given with maintenance fluids initiated - suspected source: Pyelonephritis - started on cefepime on 05/20 - blood cultures drawn on 05/21: pending - UA: Cloudy, 2+ protein, 2+ ketones, 3+ blood, 2+ bilirubin, 1+ leuks, 5120 RBC, 21-50 WBC, few epithelial cells, no bacteria - UC obtained on 05/20: pending - Abdomen/pelvis CT: Left-sided acute pyelonephritis (2) Acute pyelonephritis: Code(s): N10 - Acute pyelonephritis Status: Acute Assessment and Plan: Per chart review, patient has been on 3 rounds of antibiotics for a UTI including Cefdinir 300 mg b.i.d. x7 days on 04/14/2024, Doxycycline 100 mg b.i.d. x7 days on 04/22/2024 for an ENT issue, Bactrim 800-160 b.i.d. x7 days on 05/09/2024, Augmentin 875-125 b.i.d. x7 days prescribed on 05/19/2024. Patient has taken 2 doses of Augmentin. - UA: Cloudy, 2+ protein, 2+ ketones, 3+ blood, 2+ bilirubin, 1+ leuks, 5120 RBC, 21-50 WBC, few epithelial cells, no bacteria - UC obtained on 05/20: pending - Abdomen/pelvis CT: Left-sided acute pyelonephritis - no previous micro to be reviewed - started on Ceftriaxone, transitioned to cefepime on 05/20 given patient has failed to oral outpatient antibiotic courses after speaking with ID pharmacist. - IV fluids, DC when appropriate (3) Hypertension: Qualifiers: Hypertension type: primary hypertension Qualified Code(s): I10 - Essential (primary) hypertension Code(s): I10 - Essential (primary) hypertension Status: Chronic Assessment and Plan: Chronic, continue home medications - lisinopril 10 mg daily - monitor Plan Diet: Heart healthy GI Prophylaxis: Not currently indicated DVT Prophylaxis: SCDs Lines: Peripheral Code Status: Full code Time Spent With Patient Time with patient: 25 - 35 minutes Subjective Date/time seen: 05/21/24 08:57 Interval history: 69 year old female with past medical history of GERD, HTN, IBS, and diverticulosis presents to the hospital with abdominal pain. Patient is pleasant lying in bed. She continues to endorse flank pain and dysuria. She denies burning sensation and hematuria. She remains on cefepime for the pyelonephritis with urine cultures pending. She has no other complaints denies chest pain, shortness breast, nausea / vomiting, and abdominal pain. Review of Systems Review of Systems: All systems reviewed & are unremarkable except as noted in HPI and below Exam Narrative: AF HR 86 RR 18 SpO2 96 BP 138/82 General: well nourished, well-developed female in no acute respiratory distress who is nontoxic appearing, lying semi recumbent in bed. HEENT: Normocephalic. Atraumatic. Extraocular movement intact. Sclera clear and anicteric. No facial asymmetry. Chest: Lungs are clear to auscultation bilaterally. No wheezes or crackles. CV: Heart was regular rate and rhythm. S1-S2. No murmurs, gallops, or rubs. Abd: Abdomen was soft. Slightly tender in the hypogastric region above the bladder. Nondistended. Positive bowel sounds. No organomegaly or masses. Ext: No clubbing, cyanosis, or edema. 2+ DP pulses bilaterally. Neuro: Patient is alert and oriented x4. Cranial nerves 2-12 are intact. Speech is clear. Objective Data Vital Signs Vital Signs: Vital Signs - 24 hr 05/20/24 10:36 05/20/24 13:54 05/20/24 16:16 Temperature 97.8 F 98.2 F Pulse Rate 103 H 62 81 Respiratory Rate 16 16 16 Blood Pressure 126/80 119/63 110/70 Pulse Oximetry 95 98 97 Oxygen Delivery Room Air 05/20/24 16:30 05/20/24 21:11 05/20/24 20:00 Temperature 97.9 F 97.4 F L Pulse Rate 80 90 Respiratory Rate 16 16 Blood Pressure 120/88 124/62 Pulse Oximetry 98 95 Oxygen Delivery Room Air 05/21/24 04:35 Temperature 98.6 F Pulse Rate 86 Respiratory Rate 18 Blood Pressure 138/82 Pulse Oximetry 96 Oxygen Delivery Intake/Output Intake/Output: Intake & Output 05/18/24 05/19/24 05/20/24 05/21/24 23:59 23:59 23:59 23:59 Intake Total 1100 1150 Balance 1100 1150 Meds/Results Medications: Active Medications Generic Name Dose Route Start Last Admin Trade Name Freq PRN Reason Stop Dose Admin Acetaminophen 650 mg 05/20/24 15:39 Acetaminophen 325 Mg Tablet PO Q4H PRN Mild Pain (1-3) or Fever Hydrocodone Bitart/Acetaminophen 1 tab 05/20/24 16:38 05/21/24 06:53 Hydrocodone/Acetaminophen (*Crx) 5-325 Mg Tablet PO 1 tab Q6H PRN Administration Pain Rated 6 or Greater Gabapentin 600 mg 05/21/24 09:00 Gabapentin 300 Mg Capsule PO DAILY KENNETH Sodium Chloride 1,000 mls @ 125 mls/hr 05/20/24 15:40 05/21/24 01:31 Normal Saline Iv IV CONT 125 mls/hr .Q8H KENNETH Administration Cefepime HCl 2 gm in 50 mls @ 100 mls/hr 05/20/24 17:00 05/21/24 06:30 Maxipime 2 Gm/Ns 50 Ml IVPB Infused Q8HR KENNETH Infusion Lisinopril 10 mg 05/21/24 09:00 05/21/24 08:55 Lisinopril 10 Mg Tablet PO 10 mg DAILY KENNETH Administration Miscellaneous Information 1 each 05/21/24 00:01 Med Rec Order Clarification XX 06/20/24 00:00 CLARIFY KENNETH Miscellaneous Information 1 each 05/21/24 00:01 Order Clarification XX 06/20/24 00:00 CLARIFY KENNETH Miscellaneous Information 1 each 05/21/24 00:01 Med Rec Order Clarification XX 06/20/24 00:00 CLARIFY KENNETH Non-Formulary Medication 0.63 mg 05/20/24 18:30 Albuterol Sulfate INHALATION 06/19/24 18:29 Q6H KENNETH Non-Formulary Medication 10 mg 05/20/24 18:30 Hydrocodone Bitartrate PO 06/19/24 18:29 Q12H KENNETH Ondansetron HCl 4 mg 05/20/24 15:39 Ondansetron Inj 4 Mg/2 Ml Vial IV PUSH Q4H PRN Nausea Pantoprazole Sodium 40 mg 05/21/24 09:00 05/21/24 08:55 Pantoprazole 40 Mg Tablet PO 40 mg BID KENNETH Administration Radiology Results: ITS Impressions Abdomen/Pelvis CT 05/20/24 13:42 IMPRESSION: 1. Left-sided acute pyelonephritis. Labs Labs: Laboratory Results - last 24 hr 05/20/24 05/20/24 05/21/24 12:30 12:50 06:11 WBC 14.0 H 9.0 RBC 4.51 4.05 L Hgb 14.2 12.7 Hct 41.6 38.3 MCV 92.2 94.6 MCH 31.5 31.4 MCHC 34.1 33.2 RDW 13.1 13.2 Plt Count 326 282 MPV 9.9 11.0 H Immature Gran % (Auto) 0.6 H 0.6 H Neut % (Auto) 75.2 H 67.1 Lymph % (Auto) 15.7 L 19.1 [place] % (Auto) 7.9 10.8 H Eos % (Auto) 0.3 2.0 Baso % (Auto) 0.3 0.4 Lymph # (Auto) 2.20 1.71 [place] # (Auto) 1.1 H 1.0 H Eos # (Auto) 0.0 0.2 Baso # (Auto) 0.0 0.0 Abs Immat Gran (auto) 0.08 H 0.05 H Absolute Neuts (auto) 10.5 H 6.0 Absolute Nucleated RBC 0.000 0.000 Nucleated RBC % 0.0 0.0 Sodium 135 L 138 Potassium 3.7 4.0 Chloride 99 104 Carbon Dioxide 25 23 Anion Gap 11 11 BUN 19 H 12 D Creatinine 0.70 0.50 L Estim Creat Clear Calc 61 83 Estimated GFR > 60 > 60 Glucose 131 H 83 Lactic Acid 0.7 Calcium 9.0 8.4 Total Bilirubin 0.9 AST 26 ALT 18 Alkaline Phosphatase 120 Total Protein 7.0 Albumin 4.1 Lipase 37 Urine Color Dark yellow Urine Appearance Cloudy H Urine pH 5.5 Ur Specific [place] 1.027 Urine Protein 2+ H Urine Glucose (UA) Negative Urine Ketones 2+ H Ur Blood (Man) 3+ H Urine Nitrate Negative Urine Bilirubin 2+ H Urine Urobilinogen 1.0 Add Ur Microanalysis Reviewed Leukocyte Esterase Rfl 1+ H Urine RBC 51-100 H Urine WBC 21-50 H Ur Squamous Epith Cells Few Urine Bacteria None seen Urine Casts 3-5 Urine Mucus Present Quality VTE Prophylaxis VTE prophylaxis: mechanical ordered
[2024-05-21] MEDS: ONDANSETRON INJ 4 MG/2 ML VIAL IV PUSH (13:25)
[2024-05-21 14:00] VITALS: BP 140/78; PULSE 79; RESP 17; TEMP 37.2; O2SAT 97
[2024-05-21 20:42] VITALS: BP 120/74; PULSE 74; RESP 20; TEMP 37; O2SAT 95
[2024-05-22] MEDS: HYDROcodone/acetaminophen (*CRX) 5-325 MG TABLET 1 TAB PO ×2 (01:12→11:43)
--- NOTE | 2024-05-22 01:30 | PC.NURSE ---
Daylight Savings Time For Daylight Savings Time Ending in the Fall - Clocks are moved back. For Daylight Savings Time Beginning in the Spring - Clocks are moved ahead. For [facility], the time of change occurs at 0200 hrs. Time is taken from the seismograph observer. This entry on the patient's chart recognizes the change in time reflected during documentation. Example: 2 entries for vital signs may be charted for 0200 hrs.
[2024-05-22] MEDS: SODIUM CHLORIDE 0.9% IV 1,000 ML 125 ML IV CONT ×2 (04:14→13:03)
[2024-05-22] MEDS: CEFEPIME 2 GM/NS 50 ML 2 GM/50 ML BAG IVPB ×2 (05:15→13:03)
[2024-05-22 05:54] VITALS: BP 126/80; PULSE 68; RESP 18; TEMP 36.6; O2SAT 96
[2024-05-22 07:20] LABS: Basophils Absolute Auto 0.1 K/mm3 (0.0-0.1); Basophils Percent Auto 0.9 % (0.2-1.2); Eosinophils Absolute Auto 0.2 K/mm3 (0-0.3); Hematocrit 37.1 % (37.0-47.0); Immature Granulocyte Absolute 0.08 K/mm3 (0.00-0.031); Immature Granulocyte Percent A 1.2 % (0-0.5); Lymphocytes Absolute Auto 2.06 K/mm3 (0.9-3.2); Lymphocytes Percent Auto 30.7 % (18.3-44.2); Mean Corpuscular HGB Conc 32.3 g/dl (32-36); Mean Corpuscular Hemoglobin 30.6 pg (26-34); Mean Corpuscular Volume 94.6 fl (80-100); Mean Platelet Volume 10.3 fl (7.4-10.4); Monocytes Absolute Auto 0.7 K/mm3 (0.1-0.6); Monocytes Percent Auto 10.1 % (2.6-8.5); Neutrophils Absolute Auto 3.6 K/mm3 (1.3-6.7); Neutrophils Percent Auto 54.1 % (45.5-73.1); Platelet Count Result 299 k/mm3 (150-375); Red Blood Count 3.92 M/mm3 (4.2-5.4); Red Cell Distribution Width 13.3 % (11.5-14.5); White Blood Count 6.7 K/mm3 (4.5-10.0)
[2024-05-22] MEDS: lisinopriL 10 MG TABLET PO (08:05)
[2024-05-22] MEDS: PANTOPRAZOLE 40 MG TABLET PO (08:05)
[2024-05-22 08:18] LABS: Alanine Aminotransferase 13 U/L (6-35); Albumin Level 3.3 g/dL (3.5-5.1); Alkaline Phosphatase 93 U/L (38-126); Anion Gap 5 mmol/L (4-12); Aspartate Amino Transferase 17 U/L (14-36); Bilirubin,Total 0.6 mg/dL (0.2-1.3); Blood Urea Nitrogen 9 mg/dL (7-17); Calcium 8.7 mg/dL (8.4-10.2); Carbon Dioxide 26 mmol/L (22-30); Chloride 107 mmol/L (98-107); Estimated CRCL calculation 70 ml/min; Estimated Glomerular Filt Rate > 60; Glucose 92 mg/dL (65-110); Potassium 3.8 mmol/L (3.4-5.0); Sodium 138 mmol/L (137-145)
--- NOTE | 2024-05-22 15:20 | P.DS_ITS ---
DS: Admitting Diagnosis Discharge Date 05/22/2024 Admitting Diagnosis SIRS Acute pyelonephritis Hypertension DS: Discharge Diagnosis Discharge Diagnosis (1) SIRS (systemic inflammatory response syndrome): Code(s): R65.10 - Systemic inflammatory response syndrome (SIRS) of non-infectious origin without acute organ dysfunction Status: Acute (2) Acute pyelonephritis: Code(s): N10 - Acute pyelonephritis Status: Acute (3) Hypertension: Qualifiers: Hypertension type: primary hypertension Qualified Code(s): I10 - Essential (primary) hypertension Code(s): I10 - Essential (primary) hypertension Status: Chronic DS: Summary Hospital Course Reason for hospitalization: SIRS Acute pyelonephritis Hypertension Hospital Course: 69 year old female with past medical history of GERD, HTN, IBS, and diverticulosis presents to the hospital with abdominal pain. Per chart review, patient has been on 3 rounds of antibiotics for a UTI including Cefdinir 300 mg b.i.d. x7 days on 04/14/2024, Doxycycline 100 mg b.i.d. x7 days on 04/22/2024 for an ENT issue, Bactrim 800-160 b.i.d. x7 days on 05/09/2024, Augmentin 875- 125 b.i.d. x7 days prescribed on 05/19/2024. Patient has taken 2 doses of Augmentin. Patient was meeting SIRS criteria on admission with tachycardia and leukocytosis. She received a liter bolus at that time. Blood cultures were drawn and show NGTD. Urine culture was concerning for infection and culture was obtained, found to be negative likely due to several antibiotic courses. Abdomen/pelvis CT showed left sided acute pyelonephritis. Patient was started on IV antibiotics and sepsis resolved. At time of discharge patient was transitioned to oral antibiotics to complete the course. She continued to endorse slight hypogastric pain but notes that is was better than on admission. She denied dysuria, burning sensation and hematuria. She had no other complaints denying chest pain, shortness of breath palpitations, vomiting at time of discharge. patient discharged home in a stable condition. She is to continue her antibiotics as prescribed and follow-up with her primary care provider in 1 week. Status at Discharge Functional status at discharge: independent ambulation Time Spent with Patient Time attestation: Total time spent providing and/or coordinating discharge services: Time spent: Greater than 30 minutes Exam Narrative: AF HR 68 RR 18 Spo2 96 BP 126/80 General:female in no acute respiratory distress who is nontoxic appearing, lying semi recumbent in bed. HEENT: Normocephalic. Atraumatic. Extraocular movement intact. Sclera clear and anicteric. No facial asymmetry. Chest: Lungs are clear to auscultation bilaterally. No wheezes or crackles. CV: Heart was regular rate and rhythm. S1-S2. No murmurs, gallops, or rubs. Abd: Abdomen was soft. Slightly tender in the hypogastric region above the bladder, improved from yesterday. Nondistended. Positive bowel sounds. No organomegaly or masses. DS: Data Data Completed and Pending Completed studies during hospitalization: Abdomen/pelvis CT Labs on day of discharge: Labs from last 24 hours 05/22/24 06:31 WBC 6.7 RBC 3.92 L Hgb 12.0 Hct 37.1 MCV 94.6 MCH 30.6 MCHC 32.3 RDW 13.3 Plt Count 299 MPV 10.3 Immature Gran % (Auto) 1.2 H Neut % (Auto) 54.1 Lymph % (Auto) 30.7 [place] % (Auto) 10.1 H Eos % (Auto) 3.0 Baso % (Auto) 0.9 Lymph # (Auto) 2.06 [place] # (Auto) 0.7 H Eos # (Auto) 0.2 Baso # (Auto) 0.1 Abs Immat Gran (auto) 0.08 H Absolute Neuts (auto) 3.6 Absolute Nucleated RBC 0.000 Nucleated RBC % 0.0 Sodium 138 Potassium 3.8 Chloride 107 Carbon Dioxide 26 Anion Gap 5 BUN 9 Creatinine 0.60 L Estim Creat Clear Calc 70 Estimated GFR > 60 Glucose 92 Calcium 8.7 Total Bilirubin 0.6 AST 17 ALT 13 Alkaline Phosphatase 93 Total Protein 6.0 L Albumin 3.3 L Preliminary micro results at discharge 05/21/24 09:42 Blood Culture - Preliminary Blood 05/21/24 09:33 Blood Culture - Preliminary Blood Discharge Plan Discharge Attending physician on discharge: Savannah Contreras Discharging Clinician: Ena Francis Anticipated Discharge Date/Time: 05/22/24 13:58 Patient Disposition: Home, Self-Care Activity: as tolerated Diet: as tolerated and heart healthy Discharge Instructions: Discharge disposition: Patient admitted to the hospital for abdominal pain and found to have a kidney infection likely secondary to a urinary tract infection Take all medications as prescribed even if feeling better Augmentin twice a day, course to be completed on 05/29, attached is information on this medication Eat well balanced meals and stay hydrated Keep active to remain strong Avoid use of diapers or pads Good vincent Care every 2 hours Trend urine output Monitor blood pressures Take caution while standing, rising, or moving Change positions slowly taking a break between each position change If you standing feel dizzy sat back down and take a break Encouraged to continue with yearly vaccinations Return to the emergency department if he developed sudden shortness of breath, chest pain, nausea, vomiting, upset stomach or intractable diarrhea Return to the emergency department if you develop fever greater than 101.5 Follow-up with the primary care physician within 1 weeks Thank you for choosing [facility] for your healthcare needs Patient Instructions: Antibiotic Form, Amoxicillin/Clavulanate Potassium (By mouth), Kidney Infection (DC), Urinary Tract Infection in Older Adults (DC) Patient Language: American Stand Alone Forms: General Discharge Information, Work/School Release IP Follow-up/Referrals: Cassidy,Doug Allen MD [Primary Care Provider] - 1 Week Discharge Medications: New amoxicillin-pot clavulanate 875-125 mg tablet 1 tablet PO Q12H 7 Days Qty: 14 0RF Continued hydrocodone bitartrate 10 mg capsule, oral only, ER 12hr 10 mg PO Q12H gabapentin 600 mg tablet 600 mg PO DAILY Patient Comments: pt states tid as needed lisinopril 10 mg tablet 10 mg PO DAILY albuterol sulfate 0.63 mg/3 mL solution for nebulization 0.63 mg inhalation Q6H omeprazole 40 mg capsule,delayed release(DR/EC) 40 mg PO BID Qty: 60 3RF Discontinued amoxicillin-pot clavulanate 875-125 mg tablet 1 tablet PO BID doxycycline hyclate 100 mg capsule 100 mg PO BID Qty: 14 0RF Date of admission: 05/22/24 10:48 Primary Care Provider: CassidyDoug Admitting Provider: Savannah Contreras Attending physician on admission: Ena Francis Condition: Stable Hospitalist MIPS Heart Failure (Exclusion) Patient has history of Heart Transplant or Left Ventricular Assistive Device?: No IF YES, STOP HERE Heart Failure (Qualifier) Patient has current or prior documentation of LVEF less than or equal to 40%, or mod/servere depressed LVSF?: No IF NO, STOP HERE
--- NOTE | 2024-05-22 16:21 | PC.NURSE ---
Patient's called with questions regarding discharge meds. All questions answered.
== END 2024-05-22 14:25 | disposition home or self-care (01) | DRG 690 ==
LOC: ANHED 14:31 → ANH3MEDSUR 16:20
PROVIDERS: Student in an Organized Health Care Education/Training Program; Admitting Provider Internal Medicine; Emergency Provider Emergency Medicine; PCP Family Medicine; Visit Provider Student in an Organized Health Care Education/Training Program
DX: N10 Acute pyelonephritis (principal); R65.10 Systemic inflammatory response syndrome (SIRS) of non-infectious origin without acute organ dysfunction; I10 Essential (primary) hypertension; K21.9 Gastro-esophageal reflux disease without esophagitis; K58.9 Irritable bowel syndrome, unspecified; K57.90 Diverticulosis of intestine, part unspecified, without perforation or abscess without bleeding; F17.210 Nicotine dependence, cigarettes, uncomplicated
CPT/HCPCS: 36415; 74177; 80048; 80053; 81001; 83605; 83690; 85025; 87040; 87086; 96361; 96365; 96367; 96375; 96376; 99285; A9270; G0378; J0692; J0696; J1171; J2405; J7030; Q9967

== ENCOUNTER 2025-03-17 06:43 | Outpatient (CLI) | payer MEDICARE, SELFPAY ==
--- NOTE | ~2025-03-17 | MR_ITS ---
EXAMINATION: MR brain/brain stem wo/w con DATE: 03/17/2025 07:26 INDICATION: Tremor TECHNIQUE: Magnetic resonance imaging (MRI) of the brain and brainstem was performed without and with 14 mL Multihance intravenous contrast. Sequences included sagittal and axial T1-weighted SE, axial diffusion-weighted FS SE, axial 3D SWAN, axial T2-weighted FLAIR, and axial T2-weighted FSE. Postcontrast axial and coronal T1-weighted SE was obtained. Apparent diffusion coefficient (ADC) maps were created. COMPARISON: None. FINDINGS: There are no areas of restricted diffusion to suggest acute infarction. No intracranial hemorrhage or abnormal intracranial mass lesion. There are scattered areas of nonspecific increased T2-weighted signal intensity in the cerebral white matter, predominantly involving the deep and periventricular whi te matter. There are no intraparenchymal signal abnormalities seen on the other pulse sequences. The ventricles are symmetric and normal in size. There are no abnormal extra-axial fluid collections. Flow voids are seen in the cerebral arteries on the T2-weighted sequences consistent with their expected patency. Nonenhancing fluid/mucus in the inferior aspect of the bilateral maxillary sinuses. Visualized orbits and soft tissues are unremarkable. There are no areas of abnormal enhancement on the post contrast images. IMPRESSION: 1. Mild scattered nonspecific white matter T2 hyperintensity which is within normal limits for age and likely sequela of chronic small vessel ischemic disease. No acute intracranial process. 2. Fluid/mucus in the inferior aspect of the bilateral maxillary sinuses which can be seen with acute sinusitis. Reviewed, dictated and finalized at location A. IMPRESSION: 1. Mild scattered nonspecific white matter T2 hyperintensity which is within no rmal limits for age and likely sequela of chronic small vessel ischemic disease . No acute intracranial process. 2. Fluid/mucus in the inferior aspect of the bilateral maxillary sinuses which can be seen with acute sinusitis.
--- OUTSIDE RECORDS SUMMARY | 2025-03-17 06:47 | XMS_ITS | Patient Health Record ---
Author Organization [facility] Address [address] [place]. [address] [place] [id number] Care Team Providers Care Key Account Executive Name Role Phone Killian Boswell MD Primary Care Provider Unavailab Edgard Farnsworth Unavailable Unavailable Allergies Allergen (clinical drug ingredient) Drug/Non Drug Allergy documented on EMR Reaction Allergy Type Onset Date Status Reciprocal (uncoded) Unknown Allergy Active Reason For Referral No Information Medications Medication SIG (Take, Route, Frequency, Duration) Notes Start Date End Date Status Lovastatin Active Gabapentin Active HYDROcodone-Acetaminophen Active Naprosyn Active Lisinopril Active Pantoprazole Sodium 40 MG 1 tablet Orall y Once a day for 30 day(s) 12/04/2021 Active Immunizations Vaccine Route Administration Date Status Comme nts Influenza Vaccination Unknown 12/04/2021 Refused Pneumococcal conjugate PCV 13 Unknown 12/04/2021 Refuse d Social History Tobacco Use: Social History Observation Description Date Details (start date - stop date) Current Smoker NA - NA Tobacco Use/Smoking Question Answer Notes Are you a current smoker Problems Problem Type SNOMED Code ICD Code Onset Dates Problem Status W/U Status Risk Notes Problem 97317482 Epigastric pain (R10.13) Active confirmed She has been having intermittent epigastric pain for the last 2 years. She describes it as feeling as if she has been punched in the stomach. It is worse after eating a meal and she also feels full after only a small amount. She has used Tums intermittently, which does give her some relief. It is of note that she takes naproxen a few times a week for joint pain. Recent CT imaging revealed a normal liver, gallbladder, and stomach. Differential diagnosis includes gastritis, peptic ulcer, H. pylori, gallbladder disease, or others. Problem 455301097 Nausea (R11.0) Active confirmed She has occasional nausea, but denies having any vomiting. Problem [id number] Family history of colonic polyps (Z83.71) Active confirmed Her bowel movements have been normal. She denies having any blood in the stool. It has been 30+ year since her last colonoscopy. She has a family history of colon polyps in her mother. Problem 124509559 Bloating (R14.0) Active confirmed She has significant abdominal bloating and malodorous gas. Differential diagnosis includes IBS, SIBO, food sensitivities, H. pylori, or others. Plan Of Treatment Pending Test Test Name Order Date Upper Endoscopy 12/04/2021 Colonoscopy 12/04/2021 Insurance Providers Payer Name Payer Address Payer Phone Subscriber Number Group Number Insured Name Patient Relationship to Insured Coverage Start Date Coverage End Date Medicare E2 [address] [address] [place] [address] [id number] Rosangela Carrasquillo Self - patient is the insured Medical (General) History Surgical History Surgery Date(Month/Year) Tubal Ligation Tonsillectomy Glaucoma Surgery Catract Surgery Glass Implants - Eyes
--- OUTSIDE RECORDS SUMMARY | 2025-03-17 06:47 | XMS_ITS | Clinical Summary ---
Author Organization [facility] Address [address] [place] [address] Care Team Providers Care Turbine Operator Name Role Phone Sushant Lisa MD Primary Care Provider [phone] Source Comments [facility],non-owned Affiliates and Associated Physician Practices is amultiple site organization consisting of ambulatory clinics and hospital sitesin [place], [place], [place] and [place]. This disclosure is being madepursuant to the Care Everywhere program and may not contain all information available regarding this patient. Last updated 18.[facility] Allergies No known active allergies Medications * Be aware that medications may not be up to date on this document. Alwaysverify current medications with the patient. HYDROCODONE BITARTRATE PO Active fluticasone propionate (FLONASE) 50 MCG/ACT nasal sprayIndication s:Acute pansinusitis, recurrence not specified [place] 2 Sprays into each nostril once daily 1 Bottle 11/26/2016 Active Social History Tobacco Use Types Packs/Day Years Used Date Smoking Tobacco: Some Days Smokeless Tobacco: Never Comments No Sex and Gender Information Value Date Recorded Sex Assigned at Not on file Legal Sex Female 10:28 AM CDT Gender Identity Not on file Sexual Orientation Not on file Last Filed Vital Signs Vital Sign Reading Time Taken Comments Blood Pressure 126/72 11/26/2016 10:42 AM CDT Pulse 88 11/26/2016 10:42 AM CDT Temperature 37.1 C (98.7 F) 11/26/2016 10:42 AM CDT Respiratory Rate 16 11/26/2016 10:42 AM CDT Oxygen Saturation 95% 11/26/2016 10:42 AM CDT Inhaled Oxygen Concentration - - Weight 56.7 kg (125 lb) 11/26/2016 10:42 AM CDT Height 162.6 cm (5' 4) 11/26/2016 10:42 AM CDT Body Mass Index 21.46 11/26/2016 10:42 AM CDT Plan of Treatment Health Maintenance Due Date Last Done Comments BONE DENSITY TESTING 1955 COLOGUARD (AGES 45-75) - COL ON CA SCREENING 1955 COLON MONITORING 1955 COLONOSCOPY - COLON CA SCREENING 1955 CT COLONOGRAPHY - COLON CA SCREENING 1955 Colorectal Cancer Screening 1955 FIT - COLON CA SCREENING 1955 FLEX SIG - COLON CA SCREENING 1955 LIPID TESTING 1955 MAMMOGRAM 1955 HEPATITIS C SCREENING 02/25/1973 DTAP/TDAP/TD VACCINES (1 - Tdap) 1974 PNEUMOCOCCAL VACCINE 50+ (1 of 1 - PCV) 2005 ZOSTER VACCINE (1 of 2) 2005 COVID-19 VACCINE (1 - 2023-2 5 season) 2024 DEPRESSION SCREENING 07/20/2024 INFLUENZA VACCINE (#1) 2025 Respiratory Syncytial Virus (RSV) Vaccine Pt: or over 60 yrs (1 - 1-dose 75+ series) 2030 HEPATITIS B VACCINE Aged Out No longe r eligible based on patient's age to complete this topic HIB VACCINE Aged Out No longer eligi ble based on patient's age to complete this topic HPV VACCINE Aged Out No longer eligi ble based on patient's age to complete this topic MENINGOCOCCAL (Group B) VACC INE SHARED DECISION-MAKING Aged Out No longer eligibl e based on patient's age to complete this topic MENINGOCOCCAL GROUPS A/C/Y/W VACCINE Aged Out No longer eligible b ased on patient's age to complete this topic Insurance MEDICAID - [place] Care Teams Turbine Operator Relationship Specialty Start Date End Date Sushant Lisa MD [address] [place] [address]. [address] [place] [address] PCP - General Internal Medicine 11/26/16
== END 2025-03-17 06:44 | disposition home or self-care (01) ==
PROVIDERS: PCP Family Medicine; Visit Provider Nurse Practitioner
DX: R25.1 Tremor, unspecified (principal); R26.9 Unspecified abnormalities of gait and mobility; R90.82 White matter disease, unspecified
CPT/HCPCS: 70553; A9577

== ENCOUNTER 2025-05-09 12:48 | Inpatient (IN) | payer MEDICARE, SELFPAY ==
--- NOTE | ~2025-05-09 | CT_ITS ---
EXAMINATION: CT abdomen pelvis w con DATE: 05/09/2025 14:23 INDICATION: Possible pyelonephritis TECHNIQUE: Computed tomography (CT) of the abdomen and pelvis was performed with 100 mL Omnipaque-350 intravenous contrast. Automated exposure control and iterative reconstruction technique were employed. The dose-length product was 331.34 mGy-cm. COMPARISON: 05/20/2024 FINDINGS: Calcite nodules in the bilateral lower lobes along with multiple small splenic calcifications consistent with old granulomatous disease. Peripheral coarse reticular opacities at the bilateral lung bases which could be due to atelectasis or interstitial lung disease. Heart size is normal. No pericardial or pleural effusion. Focal hepatic steatosis at the ligamentum teres. Gallbladder, pancreas and bilateral adrenal glands are normal. Bilateral well- defined low-attenuation renal cysts the largest on the right measuring 1.1 cm. There is urothelial enhancement at the right renal pelvis suspicious for as cending urinary tract infection with pyelitis. There is however no abnormal parenchymal enhancement or inflammatory stranding at the perinephric or renal sinus fat in either kidney to suggest pyelonephritis. There is extensive scattered colonic diverticulosis with descending and sigmoid colon predominance and without adjacent inflammatory change to suggest diverticulitis. Small bowel and appendix are normal. Bladder is normal. Anteverted uterus and bilateral adnexa are unremarkable. No pathologically enlarged abdominal or pelvic lymphadenopathy. There is calcified atherosclerosis of the aorta and many of the other arteries. Mild lumbar and lower thoracic spondylosis. IMPRESSION: 1. Mild urothelial enhancement the right renal pelvis suspicious for ascending urinary tract infection pyelitis but without findings to suggest pyelonephritis. 2. Diverticulosis. Reviewed, dictated and finalized at location A. IMPRESSION: 1. Mild urothelial enhancement the right renal pelvis suspicious for ascending urinary tract infection pyelitis but without findings to suggest pyelonephritis . 2. Diverticulosis.
--- NOTE | ~2025-05-09 | XR_ITS ---
EXAMINATION: XR chest 1V portable COMPARISON: No comparisons available. HISTORY: SIRS, tachycardia FINDINGS: Mild pulmonary venous congestion. No pneumothorax. Heart is normal size. Mediastinal and hilar contours are within normal limits. Remote right-sided rib fractures. Miscellaneous: None Impression: Mild CHF Reviewed, dictated and finalized at location P. Impression: Mild CHF
[2025-05-09 13:01] VITALS: BP 118/78; PULSE 121; RESP 18; TEMP 36.6; O2SAT 92
[2025-05-09 13:16] LABS: Hematocrit 46.6 % (37.0-47.0); Hemoglobin 15.7 g/dL (12.0-15.0); Immature Granulocyte Percent A 1.2 % (0-0.5); Lymphocytes Absolute Auto 1.24 K/mm3 (0.9-3.2); Mean Corpuscular HGB Conc 33.7 g/dl (32-36); Mean Corpuscular Hemoglobin 31.3 pg (26-34); Mean Corpuscular Volume 93.0 fl (80-100); Nucleated Red Blood Cells Absolute Auto 0.000 K/mm3 (0.0-0.012); Nucleated Red Blood Cells Perc 0.0 % (0.0-0.2); Platelet Count Result 278 k/mm3 (150-375); Red Blood Count 5.01 M/mm3 (4.2-5.4); White Blood Count 33.5 K/mm3 (4.5-10.0)
[2025-05-09 13:28] LABS: Add Urine Microscopic? YES; Appearance Urine Cloudy (Clear); Glucose Urine UA Negative (Negative); Leukocyte Esterase Ur 2+ LEU/UL (Negative); Nitrate Urine Negative (Negative); Non Pathogenic Casts 0-2; Specific Grav Ur 1.016 (1.001-1.035)
[2025-05-09 13:37] LABS: Alanine Aminotransferase 20 U/L (6-35); Albumin Level 4.2 g/dL (3.5-5.1); Alkaline Phosphatase 126 U/L (38-126); Anion Gap 8 mmol/L (4-12); Aspartate Amino Transferase 38 U/L (14-36); Bilirubin,Total 1.3 mg/dL (0.2-1.3); Blood Urea Nitrogen 18 mg/dL (7-17); Calcium 9.1 mg/dL (8.4-10.2); Carbon Dioxide 24 mmol/L (22-30); Chloride 102 mmol/L (98-107); Estimated CRCL calculation 58 ml/min; Estimated Glomerular Filt Rate > 60; Glucose 117 mg/dL (65-110); Lipase 22 U/L (23-300); Potassium 4.5 mmol/L (3.4-5.0); Sodium 134 mmol/L (137-145); Total Protein 7.4 g/dL (6.3-8.2)
--- NOTE | 2025-05-09 14:51 | ED.FEMALEGU ---
HPI - Female Genitourinary General Chief complaint: Urogenital-Female Stated complaint: multiple complaints Time Seen by Provider: 05/09/25 14:04 Source: patient Mode of arrival: ambulatory Limitations: no limitations History of Present Illness HPI Narrative: 70-year-old female presenting for abdominal pain and flank pain. Patient states that for the past week she has been having lower abdominal pain with intermittent right flank pain. She has apparently been treated for multiple sinus infections over the past few weeks since been on multiple different antibiotics. He yesterday, she saw her PCP and was found to have a UTI so she was started on another antibiotic. This morning, they found that she had a fever of 100.9 prompting them to come to the ED for further evaluation. Patient has had nausea but no vomiting. Denies hematuria, dysuria. Related Data Home Medications ?Medication ?Instructions ?Recorded ?Confirmed ?Last Taken ?Type gabapentin 600 mg tablet 600 mg PO DAILY 08/05/22 05/09/25 05/08/25 History lisinopril 10 mg tablet 10 mg PO DAILY 08/05/22 05/09/25 05/08/25 History albuterol sulfate 0.63 mg/3 mL 0.63 mg inhalation Q6H PRN 04/07/25 05/09/25 05/08/25 History solution for nebulization shortness of breath or wheezing celecoxib 200 mg capsule 200 mg PO BID 04/07/25 05/09/25 05/08/25 History cyclobenzaprine 10 mg tablet 10 mg PO TID 04/07/25 05/09/25 05/08/25 History esomeprazole magnesium 40 mg 40 mg PO BID 04/07/25 05/09/25 05/08/25 History granules delayed release for susp fluticasone propionate 50 1 spray intranasal PRN 04/07/25 05/09/25 05/08/25 History mcg/actuation nasal spray,suspension (Flonase Allergy Relief) hydrocodone 10 mg-acetaminophen 1 tablet PO Q6H PRN pain 04/07/25 05/09/25 05/08/25 History 325 mg tablet ondansetron HCl 4 mg tablet 4 mg PO Q6H PRN nausea and vomiting 04/07/25 05/09/25 05/09/25 History Allergies Allergy/AdvReac Type Severity Reaction Status Date / Time ciprofloxacin (From Cipro) Allergy Hives Verified 05/09/25 18:04 Review of Systems Review of Systems: Gen.: Denies fevers or chills Eyes: Denies eye pain or visual change ENT: Denies congestion Respiratory: Denies shortness of breath or cough CV: Denies chest pain or palpitations GI: As per HPI as per HPI Musculoskeletal: Denies back pain or muscle pain Neuro: Denies numbness, tingling, weakness or focal weakness Skin: Denies rash Except as documented, all other systems reviewed and negative [facility] Past Medical History Medical History HLD (hyperlipidemia) Chronic sinusitis Dysphagia Arthritis Abnormal barium swallow Diverticulosis IBS (irritable bowel syndrome) Obesity Hypertension Tobacco abuse Oropharyngeal dysphagia GERD (gastroesophageal reflux disease) Surgical History Surgical History History of tubal ligation History of tonsillectomy Family History Family History Mother Hypertension Heart disease Diabetes mellitus Sibling Cancer Social History Social History Smoking packs per day: 0.5 Smoking cigarettes per day: 10.0 Years smoked: 25 Smoking pack-years: 12.50 Smoking status: Current every day smoker Tobacco type: cigarettes Second hand tobacco smoke exposure: Yes Alcohol intake: never Substance use: current Substance use type: marijuana Other substance usage details: hitesh, pt has medical card, not an everyday user Last use: t-3 Do You Feel Safe in your Home?: Yes Lack of Transportation: No Lack of Food: Never True Current Housing: I Have Housing Concerned About Future Housing: No Difficulty Paying Gas/Electric Bills: No Difficulty Paying for Meds: No Currently Unemployed: No Education: High School Diploma/GED Difficulty w/ Childcare or Family Care: No Living arrangements: alone Occupation/Education: occupation Gender identity (if verbalized by the patient): Female Spiritual care concerns: No Exam Narrative: APPEARANCE: No acute distress, nontoxic, resting in bed EYES: EOMI HEENT: Normocephalic, atraumatic, OMM RESPIRATORY: No respiratory distress Clear to auscultation bilaterally with no rhonchi wheezing or rales. CARDIOVASCULAR: Regular rate and rhythm without murmurs rubs or gallops. ABDOMINAL: Soft, mild suprapubic tenderness to palpation, CVA tenderness on the right. MUSCULOSKELETAl: Moves all extremities. No clubbing, cyanosis or edema. NEURO: Awake and alert. Following commands, speech normal, no focal deficits SKIN:: Warm, dry. No rashes lesions or abrasions PSYCHIATRIC: Normal affect/mood, Course Vital Signs Vital signs: Vital Signs Temperature 98 F 05/09/25 13:01 Pulse Rate 121 H 05/09/25 13:01 Respiratory Rate 18 05/09/25 13:01 Blood Pressure 118/78 05/09/25 13:01 Pulse Oximetry 92 05/09/25 13:01 Oxygen Delivery Room Air 05/09/25 13:01 Temperature 97.7 F 05/09/25 20:12 Pulse Rate 81 05/09/25 20:12 Respiratory Rate 16 05/09/25 20:12 Blood Pressure 117/75 05/09/25 20:12 Pulse Oximetry 100 05/09/25 20:12 Oxygen Delivery Room Air 05/09/25 18:00 MDM - Female Genitourinary MDM Narrative Medical decision making narrative: 70-year-old female presenting for abdominal pain and right flank pain. On initial evaluation, patient was in mild distress, afebrile, tachycardic to the 120s but otherwise hemodynamically stable. Heart and lungs were clear. She did have suprapubic tenderness to palpation but no CVA tenderness bilaterally. She did have a leukocytosis at 33.5 which was new for her. The CMP was without significant abnormalities. UA did show WBCs and rbc's, leukocyte Estrace but no nitrates or bacteriuria. CT did reveal pyelitis without pyelonephritis. Given the white count and that she is also symptomatic, mother believe that treating this as a pyelonephritis would be in the patient's best interest. She was started on Rocephin. She will be admitted for observation. Case is discussed with hospitalist who will admit the patient. Differential Diagnosis Differential diagnosis: Likely urinary tract infection, cystitis and other (Pyelonephritis, kidney stone) Medical Records Attestation: I reviewed the patient's medical records. Lab Data Attestation: I reviewed the patient's lab results. 05/09/25 13:11 05/09/25 13:10 Labs: Lab Results 05/09/25 05/09/25 05/09/25 Range/Units 13:10 13:11 13:16 WBC 33.5 H (4.5-10.0) K/mm3 RBC 5.01 (4.2-5.4) M/mm3 Hgb 15.7 H D (12.0-15.0) g/dL Hct 46.6 (37.0-47.0) % MCV 93.0 (80-100) fl MCH 31.3 (26-34) pg MCHC 33.7 (32-36) g/dl RDW 13.2 (11.5-14.5) % Plt Count 278 (150-375) k/mm3 MPV 10.3 (7.4-10.4) fl Immature Gran % (Auto) 1.2 H (0-0.5) % Neut % (Auto) 92.0 H (45.5-73.1) % Lymph % (Auto) 3.7 L (18.3-44.2) % [place] % (Auto) 2.7 (2.6-8.5) % Eos % (Auto) 0.1 (0-4.4) % Baso % (Auto) 0.3 (0.2-1.2) % Lymph # (Auto) 1.24 (0.9-3.2) K/mm3 [place] # (Auto) 0.9 H (0.1-0.6) K/mm3 Eos # (Auto) 0.1 (0-0.3) K/mm3 Baso # (Auto) 0.1 (0.0-0.1) K/mm3 Abs Immat Gran (auto) 0.40 H (0.00-0.031) K/mm3 Absolute Neuts (auto) 30.9 H (1.3-6.7) K/mm3 Absolute Nucleated RBC 0.000 (0.0-0.012) K/mm3 Nucleated RBC % 0.0 (0.0-0.2) % Sodium 134 L (137-145) mmol/L Potassium 4.5 (3.4-5.0) mmol/L Chloride 102 (98-107) mmol/L Carbon Dioxide 24 (22-30) mmol/L Anion Gap 8 (4-12) mmol/L BUN 18 H (7-17) mg/dL Creatinine 0.64 L (0.7-1.0) mg/dL Estim Creat Clear Calc 58 ml/min Estimated GFR > 60 (59 - ) Glucose 117 H (65-110) mg/dL Calcium 9.1 (8.4-10.2) mg/dL Total Bilirubin 1.3 (0.2-1.3) mg/dL AST 38 H (14-36) U/L ALT 20 (6-35) U/L Alkaline Phosphatase 126 (38-126) U/L Total Protein 7.4 (6.3-8.2) g/dL Albumin 4.2 (3.5-5.1) g/dL Lipase 22 L (23-300) U/L Urine Color Yellow (Yellow) Urine Appearance Cloudy H (Clear) Urine pH 5.5 (5.0-9.0) Ur Specific [place] 1.016 (1.001-1.035) Urine Protein Trace (Negative) mg/dL Urine Glucose (UA) Negative (Negative) mg/dL Urine Ketones Trace H (Negative) mg/dL Ur Blood (Man) 2+ H (Negative) Urine Nitrate Negative (Negative) Urine Bilirubin Negative (Negative) Urine Urobilinogen 1.0 (<2.0) mg/dL Leukocyte Esterase Rfl 2+ H (Negative) NIRU/UL Urine RBC 11-20 H (0-2) /hpf Urine WBC 51-100 H (0-3) /hpf Ur Squamous Epith Cells Occasional (Few) /hpf Urine Bacteria None seen /hpf Urine Casts 0-2 Influenza A (RT-PCR) (Negative) Influenza B (RT-PCR) (Negative) RSV (RT-PCR) (Negative) SARS-CoV-2 RNA (RT-PCR) (Negative) 05/09/25 Range/Units 15:35 WBC (4.5-10.0) K/mm3 RBC (4.2-5.4) M/mm3 Hgb (12.0-15.0) g/dL Hct (37.0-47.0) % MCV (80-100) fl MCH (26-34) pg MCHC (32-36) g/dl RDW (11.5-14.5) % Plt Count (150-375) k/mm3 MPV (7.4-10.4) fl Immature Gran % (Auto) (0-0.5) % Neut % (Auto) (45.5-73.1) % Lymph % (Auto) (18.3-44.2) % [place] % (Auto) (2.6-8.5) % Eos % (Auto) (0-4.4) % Baso % (Auto) (0.2-1.2) % Lymph # (Auto) (0.9-3.2) K/mm3 [place] # (Auto) (0.1-0.6) K/mm3 Eos # (Auto) (0-0.3) K/mm3 Baso # (Auto) (0.0-0.1) K/mm3 Abs Immat Gran (auto) (0.00-0.031) K/mm3 Absolute Neuts (auto) (1.3-6.7) K/mm3 Absolute Nucleated RBC (0.0-0.012) K/mm3 Nucleated RBC % (0.0-0.2) % Sodium (137-145) mmol/L Potassium (3.4-5.0) mmol/L Chloride (98-107) mmol/L Carbon Dioxide (22-30) mmol/L Anion Gap (4-12) mmol/L BUN (7-17) mg/dL Creatinine (0.7-1.0) mg/dL Estim Creat Clear Calc ml/min Estimated GFR (59 - ) Glucose (65-110) mg/dL Calcium (8.4-10.2) mg/dL Total Bilirubin (0.2-1.3) mg/dL AST (14-36) U/L ALT (6-35) U/L Alkaline Phosphatase (38-126) U/L Total Protein (6.3-8.2) g/dL Albumin (3.5-5.1) g/dL Lipase (23-300) U/L Urine Color (Yellow) Urine Appearance (Clear) Urine pH (5.0-9.0) Ur Specific [place] (1.001-1.035) Urine Protein (Negative) mg/dL Urine Glucose (UA) (Negative) mg/dL Urine Ketones (Negative) mg/dL Ur Blood (Man) (Negative) Urine Nitrate (Negative) Urine Bilirubin (Negative) Urine Urobilinogen (<2.0) mg/dL Leukocyte Esterase Rfl (Negative) NIRU/UL Urine RBC (0-2) /hpf Urine WBC (0-3) /hpf Ur Squamous Epith Cells (Few) /hpf Urine Bacteria /hpf Urine Casts Influenza A (RT-PCR) Negative (Negative) Influenza B (RT-PCR) Negative (Negative) RSV (RT-PCR) Negative (Negative) SARS-CoV-2 RNA (RT-PCR) Negative (Negative) Imaging Data Attestation: I personally reviewed and interpreted this imaging study as follows: Discharge Plan Discharge Clinical Impression: Acute pyelitis Patient Disposition: Still a Patient Condition: Stable
[2025-05-09] MEDS: KETOROLAC 30 MG/ML VIAL (*BKC) IV PUSH (14:57)
[2025-05-09] MEDS: ONDANSETRON INJ 4 MG/2 ML VIAL IV PUSH ×2 (14:57→18:28)
[2025-05-09] MEDS: SODIUM CHLORIDE 0.9% IV 1,000 ML 999 ML IV CONT (14:57)
[2025-05-09] MEDS: cefTRIAXone 2 GM in SODIUM CHLORIDE 0.9% IV 100 ML 200 ML IVPB (14:59)
[2025-05-09 15:00] VITALS: BP 132/84; PULSE 102; RESP 20; O2SAT 92
--- OUTSIDE RECORDS SUMMARY | 2025-05-09 15:29 | XMS_ITS | Patient Health Record ---
Author Organization [facility] Address [address] [place] [place] [address] Care Team Providers Care Mixing Place Supervisor Name Role Phone Killian Boswell MD Primary Care Provider Unavailab Edgard Farnsworth Unavailable Allergies Allergen (clinical drug ingredient) Drug/Non Drug Allergy documented on EMR Reaction Allergy Type Onset Date Status Reciprocal (uncoded) Unknown Allergy Active Reason For Referral No Information Medications Medication SIG (Take, Route, Frequency, Duration) Notes Start Date End Date Status Lovastatin Active Gabapentin Active HYDROcodone-Acetaminophen Active Naprosyn Active Lisinopril Active Pantoprazole Sodium 40 MG 1 tablet Orall y Once a day; Duration: 30 day(s) 12/04/2021 Active Immunizations Vaccine Route [...] Problem Status W/U Status Risk Notes Problem Epigastric pain (73509455) Epigastric pain (R10.13) Active confirmed She has [...] H. pylori, gallbladder disease, or others. Problem Nausea (569654585) Nausea (R11.0) Active confirmed She has occasional nausea, but denies having any vomiting. Problem Family history of polyp of colon (029129007) Family history of colonic polyps (Z83.71) Active confirmed Her bowel movements have been normal. She denies having any blood in the stool. It has been 30+ year since her last colonoscopy. She has a family history of colon polyps in her mother. Problem Flatulence, eructation and gas pain (941862139) Bloating (R14.0) Active confirmed She has significant abdominal bloating and malodorous gas. Differential diagnosis includes IBS, SIBO, food sensitivities, H. pylori, or others. Plan Of Treatment Pending Test Test Name Order Date Upper Endoscopy 12/04/2021 Colonoscopy 12/04/2021 Insurance Providers Payer Name Payer Address Payer Phone Subscriber Number Group Number Insured Name Patient Relationship to Insured Coverage Start Date Coverage End Date Medicare E2 [address] [address] [place] [address] [id number] Rosangela Carrasquillo Self - patient is the insured Medical (General) History Surgical History Surgery Date(Month/Year) Tubal Ligation Tonsillectomy Glaucoma Surgery Catract Surgery Glass Implants - Eyes
--- OUTSIDE RECORDS SUMMARY | 2025-05-09 15:30 | XMS_ITS | Clinical Summary ---
Author Organization [facility] Address [address] [place] [address] Care Team Providers Care Membership Sales Manager Name Role Phone Sushant Lisa MD Primary Care Provider [phone] Source Comments [facility],non-owned Affiliates and Associated Physician Practices is amultiple site organization consisting of ambulatory clinics and hospital sitesin [place], [place], [place] and [place]. This disclosure is being madepursuant to the Care Everywhere program and may not contain all information available regarding this patient. Last updated 18.[facility] Allergies No known active allergies Medications * Be aware that medications may not be up to date on this document. Alwaysverify current medications with the patient. HYDROCODONE BITARTRATE PO Active fluticasone propionate (FLONASE) 50 MCG/ACT nasal sprayIndication s:Acute pansinusitis, recurrence not specified [place] 2 Sprays into each nostril once daily [...] 2005 ZOSTER VACCINE (1 of 2) 2005 DEPRESSION SCREENING 07/20/2024 COVID-19 VACCINE (1 - 2023-2 5 season) 2025 INFLUENZA VACCINE (#1) 2025 Respiratory Syncytial Virus [...] topic Insurance MEDICAID - [place] Care Teams Membership Sales Manager Relationship Specialty Start Date End Date Sushant Lisa MD [address] [place] [address]. [address] [place] [address] PCP - General Internal Medicine 11/26/16
--- NOTE | 2025-05-09 15:52 | PM.IMHP ---
H&P: HPI History of Present Illness Date/Time: 05/09/25 15:52 Chief Complaint: Fever Narrative: 70 y/o F with PMH of GERD, HTN, IBS, and diverticulosis presents here with fever. The patient presents here from home on 05/09 for further evaluation of fever. This was initially precipitated by difficulty urinating/inability to urinate for 3 days and intermittent right flank pain for the past week. She was evaluated by her PCP yesterday and diagnosed with the UTI. She was prescribed Macrobid, has taken one dose. Of note, the patient has been treated for multiple sinus infections over the past few weeks and has been on multiple different antibiotic courses. Seeking evaluation in the emergency department today after she developed a fever of 100.9? F. she currently endorses accompanying nausea without vomiting, headache, and abdominal discomfort/bloating. She denies hematuria, shortness of breath, lower extremity edema or weight gain. Initial VS at presentation: 98? F, HR 121, R 18, 118/78, and 92% on RA. ED workup showed: WBC 33.5, hemoglobin 15.7, creatinine 0.64 and GFR >60, glucose 117, and UA equivocal for UTI. CT of the abdomen/pelvis showed mild urothelial enhancement of the right renal pelvis suspicious for ascending UTI pyelitis but without findings to suggest pyelonephritis, diverticulosis. Review of Systems Review of Systems: All systems reviewed & are unremarkable except as noted in HPI and below PMFSH Past Medical History Medical History HLD (hyperlipidemia) Chronic sinusitis Dysphagia Arthritis Abnormal barium swallow Diverticulosis IBS (irritable bowel syndrome) Obesity Hypertension Tobacco abuse Oropharyngeal dysphagia GERD (gastroesophageal reflux disease) Surgical History Surgical History History of tubal ligation History of tonsillectomy Family History Family History Mother Hypertension Heart disease Diabetes mellitus Sibling Cancer Social History Social History Smoking packs per day: 0.5 Smoking cigarettes per day: 10.0 Years smoked: 25 Smoking pack-years: 12.50 Smoking status: Current every day smoker Tobacco type: cigarettes Second hand tobacco smoke exposure: Yes Alcohol intake: never Substance use: current Substance use type: marijuana Other substance usage details: hitesh pt has medical card, not an everyday user Last use: t-3 Do You Feel Safe in your Home?: Yes Lack of Transportation: No Lack of Food: Never True Current Housing: I Have Housing Concerned About Future Housing: No Difficulty Paying Gas/Electric Bills: No Difficulty Paying for Meds: No Currently Unemployed: No Education: High School Diploma/GED Difficulty w/ Childcare or Family Care: No Living arrangements: alone Occupation/Education: occupation Gender identity (if verbalized by the patient): Female Spiritual care concerns: No Meds Home Medications and Allergies Home Medications ?Medication ?Instructions ?Recorded ?Confirmed ?Type gabapentin 600 mg tablet 600 mg PO DAILY 08/05/22 05/09/25 History lisinopril 10 mg tablet 10 mg PO DAILY 08/05/22 05/09/25 History albuterol sulfate 0.63 mg/3 mL 0.63 mg inhalation Q6H PRN 04/07/25 05/09/25 History solution for nebulization shortness of breath or wheezing celecoxib 200 mg capsule 200 mg PO BID 04/07/25 05/09/25 History cyclobenzaprine 10 mg tablet 10 mg PO TID 04/07/25 05/09/25 History esomeprazole magnesium 40 mg 40 mg PO BID 04/07/25 05/09/25 History granules delayed release for susp fluticasone propionate 50 1 spray intranasal PRN 04/07/25 05/09/25 History mcg/actuation nasal spray,suspension (Flonase Allergy Relief) hydrocodone 10 mg-acetaminophen 1 tablet PO Q6H PRN pain 04/07/25 05/09/25 History 325 mg tablet ondansetron HCl 4 mg tablet 4 mg PO Q6H PRN nausea and vomiting 04/07/25 05/09/25 History Allergies Allergy/AdvReac Type Severity Reaction Status Date / Time ciprofloxacin (From Cipro) Allergy Hives Verified 05/09/25 18:04 Vital Signs Vital Signs - 24 hr 05/09/25 13:01 05/09/25 15:00 Temperature 98 F Pulse Rate 121 H 102 H Respiratory Rate 18 20 Blood Pressure 118/78 132/84 Pulse Oximetry 92 92 Oxygen Delivery Room Air Exam Const: General: comfortable and no acute distress Other: , female, elderly, nontoxic appearance HENMT: Face/Nose/Sinus: Normal nares present Mouth: Yes moist mucous membranes Eyes: General: appearance normal, both eyes and all related structures Sclera: sclerae normal Pupils: Equal, round and reactive pupils present EOM: EOMs intact bilaterally Resp: Effort & Inspection: normal respiratory effort Auscultation: clear to auscultation bilaterally Cardio: Rate: regular rate Rhythm: regular rhythm Other: S1-S2 present without murmur, rub, ectopy GI: Other: Abdomen soft, nondistended, nontender. Normoactive bowel sounds in all quadrants. Skin: General skin exam: normal color and no rashes or lesions noted Wounds: no wounds Neuro: Speech: normal speech Motor exam (neuro): 5/5 motor strength present throughout Sensory Exam: normal sensation Other: A&O x4 Extrem: General: normal to inspection Psych: Mental Status: mental status grossly normal Affect: normal affect Other: Good insight and judgment, pleasant H&P: Results Labs Labs: Short CBC 05/09/25 Range/Units 13:11 WBC 33.5 H (4.5-10.0) K/mm3 Hgb 15.7 H D (12.0-15.0) g/dL Hct 46.6 (37.0-47.0) % Plt Count 278 (150-375) k/mm3 BMP 05/09/25 13:10 Sodium 134 L Potassium 4.5 Chloride 102 Carbon Dioxide 24 BUN 18 H Creatinine 0.64 L Glucose 117 H Calcium 9.1 Liver Function 05/09/25 Range/Units 13:10 Total Bilirubin 1.3 (0.2-1.3) mg/dL AST 38 H (14-36) U/L ALT 20 (6-35) U/L Alkaline Phosphatase 126 (38-126) U/L Albumin 4.2 (3.5-5.1) g/dL Urine 05/09/25 Range/Units 13:16 Urine Color Yellow (Yellow) Urine Appearance Cloudy H (Clear) Urine pH 5.5 (5.0-9.0) Ur Specific [place] 1.016 (1.001-1.035) Urine Protein Trace (Negative) mg/dL Urine Glucose (UA) Negative (Negative) mg/dL Assessment and Plan Assessment and plan (1) SIRS (systemic inflammatory response syndrome): Code(s): R65.10 - Systemic inflammatory response syndrome (SIRS) of non-infectious origin without acute organ dysfunction Status: Acute Assessment and Plan: Patient met SIRS criteria at due to an elevated heart rate (HR 120) and elevated WBC (33.5). Checking lactic, however has received 1 L bolus. Blood cultures were ordered. UA equivocal for UTI, however urine was tested yesterday at her PCP and she was diagnosed with a UTI. CT also showing evidence of ascending UTI. - continue IV fluids - antipyretic p.r.n. - check blood cultures and lactic - monitor hemodynamic stability, WBC, and heart rate (2) UTI (urinary tract infection): Qualifiers: Urinary tract infection type: acute cystitis Hematuria presence: without hematuria Qualified Code(s): N30.00 - Acute cystitis without hematuria Code(s): N39.0 - Urinary tract infection, site not specified Status: Acute Assessment and Plan: - UA: Cloudy, trace ketones, 2+ blood, 2+ leuk esterase, 11-20 RBC, 51-100 WBC, occasional epithelial cells, no bacteria - UC pending - previous micro reviewed, no previous resistances noted - started on Ceftriaxone on 05/09 (3) CHF (congestive heart failure): Qualifiers: Heart failure type: unspecified Heart failure chronicity: acute Qualified Code(s): I50.9 - Heart failure, unspecified Code(s): I50.9 - Heart failure, unspecified Status: Acute Assessment and Plan: No previously documented history of congestive heart failure. CXR obtained which showed mild CHF. Euvolemic on exam. Reviewed chart, no previous echo on file. - check echo - monitor I&Os/daily weights - Lasix 40 mg IV x1 (4) Hypertension: Qualifiers: Hypertension type: primary hypertension Qualified Code(s): I10 - Essential (primary) hypertension Code(s): I10 - Essential (primary) hypertension Status: Chronic Assessment and Plan: - chronic, currently 132/84, stable. - continue home medications: Lisinopril - monitor Plan Diet: Heart healthy GI Prophylaxis: Na DVT Prophylaxis: SCDs IV fluids: 1l bolus -> 150 mL/hr x1L Lines/Tubes: Peripheral IV Code Status: Full code Quality VTE Prophylaxis VTE prophylaxis: mechanical ordered Hospitalist MIPS Advance Care Plan I have confirmed that the patient's Advanced Care Plan is present, code status is documented, or surrogate decision maker is listed in patient medical record.: Yes Medication Reconciliation I have utilized all available resources to obtain, update and review the patients current medications (includes all prescriptions, OTC, herbals, cannabis, and nutritional supplements).: Yes
--- NOTE | 2025-05-09 16:08 | PC.NURSE ---
reg dinner diet tray ordered
[2025-05-09 16:16] LABS: Influenza A QL RT-PCR Negative (Negative); Influenza B QL RT-PCR Negative (Negative); RSV RNA, RT-PCR Negative (Negative); SARS-CoV-2 RNA PCR Negative (Negative)
[2025-05-09 17:26] VITALS: BP 118/87; PULSE 97; RESP 20; O2SAT 92
--- NOTE | 2025-05-09 17:44 | ADMGEN ---
This patient, Rosangela Carrasquillo, was admitted to [facility] Surg Room 317-02. Patient/family oriented to hospital policies and general routines including ID bracelet, bed and alarms, visiting hours, pain management, procedures, bathroom and other care routines, personal items, smoking policy, room service/diet, and visiting hours. Information on how to activate the Rapid Response Team has been discussed. Patient/Family are encouraged to report perceived risks to care and to ask questions if they do not understand what they are told or what they should do.
[2025-05-09 17:49] VITALS: BMI 27.3
[2025-05-09 17:54] VITALS: BP 109/74; PULSE 95; RESP 17; TEMP 36.8; O2SAT 95
--- OUTSIDE RECORDS SUMMARY | 2025-05-09 18:24 | XMS_ITS | Clinical Summary ---
Author Organization [facility] Address [address] [place] [address] Care Team Providers Care Fan Blade Truer Name Role Phone Sushant Lisa MD Primary Care Provider [phone] Source Comments [facility],non-owned Affiliates and Associated Physician Practices is amultiple site organization consisting of ambulatory clinics and hospital sitesin [place], [place], [place] and [place]. This disclosure is being madepursuant to the Care Everywhere program and may not contain all information available regarding this patient. Last updated 18.[facility] Allergies No known active allergies Medications * Be aware that medications may not be up to date on this document. Alwaysverify current medications with the patient. HYDROCODONE BITARTRATE PO Active fluticasone propionate (FLONASE) 50 MCG/ACT nasal sprayIndication s:Acute pansinusitis, recurrence not specified Caroline 2 Sprays into each nostril once daily [...] topic Insurance MEDICAID - [place] Care Teams Fan Blade Truer Relationship Specialty Start Date End Date Sushant Lisa MD [address] [place] [address]. [address] [place] [address] PCP - General Internal Medicine 11/26/16
[2025-05-09] MEDS: ACETAMINOPHEN 325 MG TABLET 650 MG PO ×2 (18:28→22:08)
[2025-05-09] MEDS: LACTATED RINGERS 1,000 ML 150 ML IV CONT (18:29)
--- NOTE | 2025-05-09 18:57 | PC.NURSE ---
Patient does not know doses of home medications, will need to call pharmacy or PCP in the morning for home medication verification.
[2025-05-09 20:12] VITALS: BP 117/75; PULSE 81; RESP 16; TEMP 36.5; O2SAT 100
--- NOTE | 2025-05-10 | ECHO_ITS ---
Patient Info Name: Rosangela Carrasquillo Age: 70 years : 1955 Gender: Female Ht: 63 in Wt: 155 lbs BSA: 1.79 m2 HR: 74 bpm BP: 119 / 75 mmHg Heart Rhythm: Sinus Rhythm Technical Quality: Fair Exam Date: 05/10/2025 10:40 AM Patient Status: I Admit Date: 05/10/2025 Exam Type: CA echo doppler color flow Complete two-dimensional, color flow and Doppler transthoracic echocardiogram is performed. Staff Referring Physician: Argelia Garza Handle Attacher: Heidi Sanchez Attending Provider: Dany Richard Summary 1. Complete two-dimensional, color flow and Doppler transthoracic echocardiogram is performed. 2. Left ventricular systolic function is normal, estimated at 60-65. 3. The left ventricular diastolic function is grade II diastolic dysfunction. 4. There is trace mitral valve regurgitation. 5. There is mild tricuspid valve regurgitation. 6. No pulmonary hypertension, estimated pulmonary arterial systolic pressure is 30 mmHg. Left Ventricle Left ventricular chamber dimension is normal. Left ventricular systolic function is normal, estimated at 60-65. There is no increased left ventricular wall thickness. Left ventricular septal wall motion is normal. The left ventricular diastolic function is grade II diastolic dysfunction. Right Ventricle Right ventricular chamber dimension is normal. Right ventricular systolic function is normal. Left Atria Left atrial chamber dimension is normal. Right Atria Right atrial chamber dimension is normal. Aortic Valve The aortic valve is trileaflet. There is mild aortic valve sclerosis. There is no aortic valve stenosis. There is no aortic valve regurgitation. Pulmonic Valve The pulmonic valve is normal. There is no pulmonic valve stenosis. There is no pulmonic regurgitation. Mitral Valve The mitral valve has normal leaflets. There is no mitral valve stenosis. There is trace mitral valve regurgitation. Tricuspid Valve The tricuspid valve leaflets are normal. There is no significant tricuspid valve stenosis. There is mild tricuspid valve regurgitation. No pulmonary hypertension, estimated pulmonary arterial systolic pressure is 30 mmHg. Pericardium/Pleural The pericardium appears normal. There is no pericardial effusion. Inferior Vena Cava Normal inferior vena cava with >50% collapse upon inspiration consistent with normal right atrial pressure, 5 mmHg. Aorta The aortic root size at the sinus of Valsalva is normal. The prox ascending aorta size is normal. Left Ventricular Outflow Tract Name Value Normal LVOT 2D LVOT Diameter 2.0 cm LVOT Doppler LVOT Peak Velocity 114 cm/s LVOT Peak Gradient 5 mmHg LVOT Mean Gradient 3 mmHg LVOT VTI 19 cm LVOT VTI/AV VTI Ratio 0.8 LVOT Stroke Volume 58 ml LVOT CO 4.6 l/min LVOT CI 2.5 l/min/m2 Pulmonic Valve Name Value Normal RVOT Doppler RVOT Peak Velocity 68 cm/s RVOT Peak Gradient 2 mmHg PV Doppler PV Peak Velocity 91 cm/s PV Peak Gradient 3 mmHg Mitral Valve Name Value Normal MV Diastolic Function MV E Peak Velocity 81 cm/s MV A Peak Velocity 92 cm/s MV E/A 0.9 MV Decel Time (PW) 224 ms MV Annular TDI MV E/e' (Septal) 10.9 MV E/e' (Lateral) 10.4 MV E/e' (Average) 10.6 Tricuspid Valve Name Value Normal TV Regurgitation Doppler TR Peak Velocity 251 cm/s TR Peak Gradient 25 mmHg Estimated PAP/RSVP RA Pressure 5 mmHg <=5 PA Systolic Pressure 30 mmHg <36 RV Systolic Pressure 30 mmHg <36 TV Annular TDI TV Lateral Meaghan s' Velocity 10.4 cm/s >=9.5 Aorta Name Value Normal Ascending Aorta Ao Root Diameter (MM) 3.5 cm Ao Root Diam Index (MM) 1.9 cm/m2 Aortic Valve Name Value Normal AV Doppler AV Peak Velocity 149 cm/s AV Peak Gradient 9 mmHg AV Mean Gradient 4 mmHg AV VTI 24 cm AV Area (Cont Eq VTI) 2.4 cm2 >=3.0 AV Area (Cont Eq Albert) 2.3 cm2 AV DI (Albert) 0.77 AV Regurgitation 2D LVOT Area 3.0 cm2 Ventricles Name Value Normal LV Dimensions 2D/MM IVS Diastolic Thickness (2D) 1.0 cm 0.6-1.0 LVID Diastole (2D) 4.5 cm 3.8-5.2 LVIW Diastolic Thickness (2D) 0.9 cm 0.6-0.9 LVID Systole (2D) 2.5 cm 2.2-3.5 LVOT Diameter 2.0 cm LV Mass (2D Cubed) 143.06 g 67.00-162.00 LV Mass Index (2D Cubed) 80 g/m2 43-95 Relative Wall Thickness (2D) 0.42 <=0.42 LV Fractional Shortening/Ejection Fraction 2D/MM LV Fractional Shortening (2D) 44 % 27-45 LV EF (2D Teichholz) 75 % LV Diastolic Volume (4C MOD) 51 ml LV EF (4C MOD) 63 % LV Diastolic Volume (2C MOD) 53 ml LV EF (2C MOD) 62 % LV Diastolic Volume (BP MOD) 53 ml 46-106 LV Diastolic Volume Index (BP MOD) 30 ml/m2 29-61 LV Systolic Volume (BP MOD) 20 ml 14-42 LV Systolic Volume Index (BP MOD) 11 ml/m2 8-24 LV EF (BP MOD) 62 % 54-74 LV Diastolic Length (4C) 7.6 cm LV Systolic Length (4C) 6.2 cm LV Stroke Volume (4C MOD) 33 ml Atria Name Value Normal LA Dimensions LA Dimension (MM) 3.6 cm 2.7-3.8 LA Volume (4C A-L) 36 ml LA Volume (BP A-L) 43 ml RA Dimensions RA Area (4C) 10.0 cm2 <=18.0 Report Signatures
[2025-05-10] MEDS: FUROSEMIDE INJ 40 MG/4 ML VIAL IV PUSH (00:10)
[2025-05-10] MEDS: CYCLOBENZAPRINE HCL 10 MG TABLET PO ×2 (05:02→13:34)
[2025-05-10] MEDS: GABAPENTIN 300 MG CAPSULE 600 MG PO ×3 (05:02→20:37)
[2025-05-10] MEDS: HYDROcodone/acetaminophen (*CRX) 10-325 MG TABLET 1 TAB PO ×2 (05:05→20:37)
[2025-05-10 06:00] VITALS: BP 119/75; PULSE 79; RESP 14; TEMP 36.9; O2SAT 92
[2025-05-10 07:02] LABS: Hematocrit 41.0 % (37.0-47.0); Hemoglobin 13.5 g/dL (12.0-15.0); Immature Granulocyte Percent A 0.5 % (0-0.5); Lymphocytes Absolute Auto 1.38 K/mm3 (0.9-3.2); Mean Corpuscular HGB Conc 32.9 g/dl (32-36); Mean Corpuscular Hemoglobin 31.3 pg (26-34); Mean Corpuscular Volume 94.9 fl (80-100); Nucleated Red Blood Cells Absolute Auto 0.000 K/mm3 (0.0-0.012); Nucleated Red Blood Cells Perc 0.0 % (0.0-0.2); Platelet Count Result 202 k/mm3 (150-375); Red Blood Count 4.32 M/mm3 (4.2-5.4); White Blood Count 8.9 K/mm3 (4.5-10.0)
[2025-05-10 07:36] LABS: Anion Gap 5 mmol/L (4-12); Blood Urea Nitrogen 18 mg/dL (7-17); Calcium 8.8 mg/dL (8.4-10.2); Carbon Dioxide 30 mmol/L (22-30); Chloride 103 mmol/L (98-107); Estimated CRCL calculation 55 ml/min; Estimated Glomerular Filt Rate > 60; Glucose 88 mg/dL (65-110); Potassium 4.0 mmol/L (3.4-5.0); Sodium 138 mmol/L (137-145)
[2025-05-10] MEDS: CELECOXIB 200 MG CAPSULE PO ×2 (08:21→16:05)
[2025-05-10] MEDS: PANTOPRAZOLE 40 MG TABLET PO ×2 (08:22→20:37)
[2025-05-10] MEDS: ACETAMINOPHEN 325 MG TABLET 650 MG PO ×2 (08:24→12:53)
[2025-05-10 14:00] VITALS: BP 123/68; PULSE 75; RESP 16; TEMP 36.1; O2SAT 95
--- NOTE | 2025-05-10 14:06 | P.PNIM_ITS ---
Progress Note: A&P Assessment and Plan (1) SIRS (systemic inflammatory response syndrome): Code(s): R65.10 - Systemic inflammatory response syndrome (SIRS) of non-infectious origin without acute organ dysfunction Status: Acute Assessment and Plan: Patient met SIRS criteria at due to an elevated heart rate (HR 120) and elevated WBC (33.5). Checking lactic, however has received 1 L bolus. Blood cultures we re ordered. UA equivocal for UTI, however urine was tested yesterday at her PCP and she was diagnosed with a UTI. CT also showing evidence of ascending UTI. - continue IV fluids - antipyretic p.r.n. - check blood cultures and lactic - monitor hemodynamic stability, WBC, and heart rate BC prelim pending (2) UTI (urinary tract infection): Qualifiers: Urinary tract infection type: acute cystitis Hematuria presence: without hematuria Qualified Code(s): N30.00 - Acute cystitis without hematuria Code(s): N39.0 - Urinary tract infection, site not specified Status: Acute Assessment and Plan: - UA: Cloudy, trace ketones, 2+ blood, 2+ leuk esterase, 11-20 RBC, 51-100 WBC, occasional epithelial cells, no bacteria - UC pending - previous micro reviewed, no previous resistances noted - started on Ceftriaxone on 05/09 follow urine culture (3) CHF (congestive heart failure): Qualifiers: Heart failure type: unspecified Heart failure chronicity: acute Qualified Code(s): I50.9 - Heart failure, unspecified Code(s): I50.9 - Heart failure, unspecified Status: Acute Assessment and Plan: No previously documented history of congestive heart failure. CXR obtained which showed mild CHF. Euvolemic on exam. Reviewed chart, no previous echo on file. - check echo - monitor I&Os/daily weights - Lasix 40 mg IV x1 (4) Hypertension: Qualifiers: Hypertension type: primary hypertension Qualified Code(s): I10 - Essential (primary) hypertension Code(s): I10 - Essential (primary) hypertension Status: Chronic Assessment and Plan: - chronic, currently 132/84, stable. - continue home medications: Lisinopril - monitor Plan Diet: Heart healthy GI Prophylaxis: Na DVT Prophylaxis: SCDs IV fluids: 1l bolus -> 150 mL/hr x1L Lines/Tubes: Peripheral IV Code Status: Full code Time Spent With Patient Time with patient: 25 - 35 minutes Subjective Date/time seen: 05/10/25 14:06 Interval history: 70 y/o F with PMH of GERD, HTN, IBS, and diverticulosis presents here with fever. The patient presents here from home on 05/09 for further evaluation of fever. This was initially precipitated by difficulty urinating/inability to urinate for 3 days and intermittent right flank pain for the past week. She was evaluated by her PCP yesterday and diagnosed with the UTI. She was prescribed Macrobid, has taken one dose. Of note, the patient has been treated for multiple sinus infections over the past few weeks and has been on multiple different antibiotic courses. Seeking evaluation in the emergency department today after she developed a fever of 100.9? F. she currently endorses accompanying nausea without vomiting, headache, and abdominal discomfort/bloating. She denies hematuria, shortness of breath, lower extremity edema or weight gain. Initial VS at presentation: 98? F, HR 121, R 18, 118/78, and 92% on RA. ED workup showed: WBC 33.5, hemoglobin 15.7, creatinine 0.64 and GFR >60, glucose 117, and UA equivocal for UTI. CT of the abdomen/pelvis showed mild urothelial enhancement of the right renal pelvis suspicious for ascending UTI pyelitis but without findings to suggest pyelonephritis, diverticulosis. Pt is seen and examined. she is doing well. no chest pain, no sob. Review of Systems Review of Systems: All systems reviewed & are unremarkable except as noted in HPI and below Exam Narrative: normal. Const: General: comfortable and no acute distress Other: , female, elderly, nontoxic appearance HENMT: Face/Nose/Sinus: Normal nares present Mouth: Yes moist mucous membranes Eyes: General: appearance normal, both eyes and all related structures Sclera: sclerae normal Pupils: Equal, round and reactive pupils present EOM: EOMs intact bilaterally Resp: Effort & Inspection: normal respiratory effort Auscultation: clear to auscultation bilaterally Cardio: Rate: regular rate Rhythm: regular rhythm Other: S1-S2 present without murmur, rub, ectopy GI: Other: Abdomen soft, nondistended, nontender. Normoactive bowel sounds in all quadrants. Skin: General skin exam: normal color and no rashes or lesions noted Wounds: no wounds Neuro: Cranial nerves: Yes Equal, round and reactive pupils present Speech: normal speech Motor exam (neuro): 5/5 motor strength present throughout Sensory Exam: normal sensation Other: A&O x4 Extrem: General: normal to inspection Psych: Mental Status: mental status grossly normal Affect: normal affect Other: Good insight and judgment, pleasant Objective Data Vital Signs Vital Signs: Vital Signs - 24 hr 05/09/25 15:00 05/09/25 17:26 05/09/25 17:54 Temperature 98.2 F Pulse Rate 102 H 97 95 Respiratory Rate 20 20 17 Blood Pressure 132/84 118/87 109/74 Pulse Oximetry 92 92 95 Oxygen Delivery 05/09/25 18:00 05/09/25 20:12 05/10/25 06:00 Temperature 97.7 F 98.4 F Pulse Rate 81 79 Respiratory Rate 16 14 Blood Pressure 117/75 119/75 Pulse Oximetry 100 92 Oxygen Delivery Room Air Intake/Output Intake/Output: Intake & Output 05/07/25 05/08/25 05/09/25 05/10/25 23:59 23:59 23:59 23:59 Intake Total 1890 236 Balance 1890 236 Meds/Results Medications: Active Medications Generic Name Dose Route Start Last Admin Trade Name Freq PRN Reason Stop Dose Admin Acetaminophen 650 mg 05/09/25 16:53 05/10/25 12:53 Acetaminophen 325 Mg Tablet PO 650 mg Q4H PRN Administration Mild Pain (1-3) or Fever Hydrocodone Bitart/Acetaminophen 1 tab 05/09/25 23:49 05/10/25 05:05 Hydrocodone/Acetaminophen (*Crx) 10-325 Mg Tablet PO 1 tab Q6H PRN Administration Pain Rated 4-6 Albuterol 0.63 mg 05/10/25 00:01 Albuterol Sulfate Neb 2.5 Mg/3 Ml Inh INHALATION Q6H PRN shortness of breath or wheezing Bisacodyl 5 mg 05/09/25 16:53 Bisacodyl 5 Mg Tablet Ec PO DAILY PRN Constipation Celecoxib 200 mg 05/10/25 08:00 05/10/25 08:21 Celecoxib 200 Mg Capsule PO 200 mg BIDWM KENNETH Administration Cyclobenzaprine HCl 10 mg 05/10/25 06:00 05/10/25 13:34 Cyclobenzaprine Hcl 10 Mg Tablet PO 10 mg Q8HR KENNETH Administration Fluticasone Propionate 1 spray 05/09/25 23:49 Fluticasone Propionate 0.05% Na Spr 16 Gm Btl (*Bkc) NASAL DAILY PRN ALLERGY SYMPTOMS Gabapentin 600 mg 05/10/25 06:00 05/10/25 13:34 Gabapentin 300 Mg Capsule PO 600 mg Q8HR KENNETH Administration Ceftriaxone Sodium 1 gm/ 50 mls @ 100 mls/hr 05/10/25 15:00 Sodium Chloride IVPB Q24H KENNETH Lisinopril 10 mg 05/10/25 09:00 05/10/25 08:21 Lisinopril 10 Mg Tablet PO 10 mg DAILY KENNETH Administration Ondansetron HCl 4 mg 05/09/25 16:53 05/09/25 18:28 Ondansetron Inj 4 Mg/2 Ml Vial IV PUSH 4 mg Q6H PRN Administration Nausea And Vomiting Pantoprazole Sodium 40 mg 05/10/25 09:00 05/10/25 08:22 Pantoprazole 40 Mg Tablet PO 40 mg Q12HR KENNETH Administration Perflutren Lipid Microsphere 0 ml 05/09/25 17:16 Perflutren Lipid Microspheres 1.5 Ml Vial Diluted To 10 Ml Total Volume IV PUSH 05/12/25 17:16 ONCE PRN adequate visualization Protocol Radiology Results: ITS Impressions Abdomen/Pelvis CT 05/09/25 14:31 IMPRESSION: 1. Mild urothelial enhancement the right renal pelvis suspicious for ascending urinary tract infection pyelitis but without findings to suggest pyelonephritis. 2. Diverticulosis. Chest X-Ray 05/09/25 17:10 Impression: Mild CHF Labs Labs: Laboratory Results - last 24 hr 05/09/25 05/09/25 05/10/25 15:35 19:34 06:08 WBC 8.9 RBC 4.32 Hgb 13.5 Hct 41.0 MCV 94.9 MCH 31.3 MCHC 32.9 RDW 13.3 Plt Count 202 MPV 11.9 H Immature Gran % (Auto) 0.5 Neut % (Auto) 72.1 Lymph % (Auto) 15.6 L [place] % (Auto) 5.3 Eos % (Auto) 6.2 H Baso % (Auto) 0.3 Lymph # (Auto) 1.38 [place] # (Auto) 0.5 Eos # (Auto) 0.6 H Baso # (Auto) 0.0 Abs Immat Gran (auto) 0.04 H Absolute Neuts (auto) 6.4 Absolute Nucleated RBC 0.000 Nucleated RBC % 0.0 Sodium 138 Potassium 4.0 Chloride 103 Carbon Dioxide 30 Anion Gap 5 BUN 18 H Creatinine 0.78 Estim Creat Clear Calc 55 Estimated GFR > 60 Glucose 88 Lactic Acid 1.3 Calcium 8.8 Influenza A (RT-PCR) Negative Influenza B (RT-PCR) Negative RSV (RT-PCR) Negative SARS-CoV-2 RNA (RT-PCR) Negative Quality VTE Prophylaxis VTE prophylaxis: mechanical ordered
[2025-05-10] MEDS: cefTRIAXone 1 GM in SODIUM CHLORIDE 0.9% IV 50 ML 100 ML IVPB (14:36)
--- NOTE | 2025-05-10 15:04 | PM.IMPN ---
Progress Note: A&P Assessment and Plan (1) SIRS (systemic inflammatory response syndrome): Code(s): R65.10 - Systemic inflammatory response syndrome (SIRS) of non-infectious origin without acute organ dysfunction Status: Acute Assessment and Plan: Patient met SIRS criteria at due to an elevated heart rate (HR 120) and elevated WBC (33.5). Checking lactic, however has received 1 L bolus. Blood cultures were ordered. UA equivocal for UTI, however urine was tested yesterday at her PCP and she was diagnosed with a UTI. CT also showing evidence of ascending UTI. - continue IV fluids - antipyretic p.r.n. - check blood cultures and lactic - monitor hemodynamic stability, WBC, and heart rate BC prelim pending follow BC (2) UTI (urinary tract infection): Qualifiers: Urinary tract infection type: acute cystitis Hematuria presence: without hematuria Qualified Code(s): N30.00 - Acute cystitis without hematuria Code(s): N39.0 - Urinary tract infection, site not specified Status: Acute Assessment and Plan: - UA: Cloudy, trace ketones, 2+ blood, 2+ leuk esterase, 11-20 RBC, 51-100 WBC, occasional epithelial cells, no bacteria - UC pending - previous micro reviewed, no previous resistances noted - started on Ceftriaxone on 05/09 follow urine culture continue Rocephin for now (3) CHF (congestive heart failure): Qualifiers: Heart failure type: unspecified Heart failure chronicity: acute Qualified Code(s): I50.9 - Heart failure, unspecified Code(s): I50.9 - Heart failure, unspecified Status: Acute Assessment and Plan: No previously documented history of congestive heart failure. CXR obtained which showed mild CHF. Euvolemic on exam. Reviewed chart, no previous echo on file. - check echo - monitor I&Os/daily weights - Lasix 40 mg IV x1 (4) Hypertension: Qualifiers: Hypertension type: primary hypertension Qualified Code(s): I10 - Essential (primary) hypertension Code(s): I10 - Essential (primary) hypertension Status: Chronic Assessment and Plan: - chronic, currently 132/84, stable. - continue home medications: Lisinopril - monitor Plan Diet: Heart healthy GI Prophylaxis: Na DVT Prophylaxis: SCDs IV fluids: 1l bolus -> 150 mL/hr x1L Lines/Tubes: Peripheral IV Code Status: Full code Time Spent With Patient Time with patient: 25 - 35 minutes Subjective Date/time seen: 05/10/25 15:04 Interval history: 70 y/o F with PMH of GERD, HTN, IBS, and diverticulosis presents here with fever. The patient presents here from home on 05/09 for further evaluation of fever. This was initially precipitated by difficulty urinating/inability to urinate for 3 days and intermittent right flank pain for the past week. She was evaluated by her PCP yesterday and diagnosed with the UTI. She was prescribed Macrobid, has taken one dose. Of note, the patient has been treated for multiple sinus infections over the past few weeks and has been on multiple different antibiotic courses. Seeking evaluation in the emergency department today after she developed a fever of 100.9? F. she currently endorses accompanying nausea without vomiting, headache, and abdominal discomfort/bloating. She denies hematuria, shortness of breath, lower extremity edema or weight gain. Initial VS at presentation: 98? F, HR 121, R 18, 118/78, and 92% on RA. ED workup showed: WBC 33.5, hemoglobin 15.7, creatinine 0.64 and GFR >60, glucose 117, and UA equivocal for UTI. CT of the abdomen/pelvis showed mild urothelial enhancement of the right renal pelvis suspicious for ascending UTI pyelitis but without findings to suggest pyelonephritis, diverticulosis. Pt is seen and examined. she is doing well. No chest pain, no sob. Reports random shakiness, tremors episodes, some of them last for an hour. Nothing currently observed. BUt she had head scan with no explanation. Havenot seen neurology yet. reports headaches at times as well, asking for something other than tylenol. Review of Systems Review of Systems: All systems reviewed & are unremarkable except as noted in HPI and below Exam Narrative: normal. Const: General: comfortable and no acute distress Other: , female, elderly, nontoxic appearance HENMT: Face/Nose/Sinus: Normal nares present Mouth: Yes moist mucous membranes Eyes: General: appearance normal, both eyes and all related structures Sclera: sclerae normal Pupils: Equal, round and reactive pupils present EOM: EOMs intact bilaterally Resp: Effort & Inspection: normal respiratory effort Auscultation: clear to auscultation bilaterally Cardio: Rate: regular rate Rhythm: regular rhythm Other: S1-S2 present without murmur, rub, ectopy GI: Other: Abdomen soft, nondistended, nontender. Normoactive bowel sounds in all quadrants. Skin: General skin exam: normal color and no rashes or lesions noted Wounds: no wounds Neuro: Cranial nerves: Yes Equal, round and reactive pupils present Speech: normal speech Motor exam (neuro): 5/5 motor strength present throughout Sensory Exam: normal sensation Other: A&O x4 Extrem: General: normal to inspection Psych: Mental Status: mental status grossly normal Affect: normal affect Other: Good insight and judgment, pleasant Objective Data Vital Signs Vital Signs: Vital Signs - 24 hr 05/09/25 17:26 05/09/25 17:54 05/09/25 18:00 Temperature 98.2 F Pulse Rate 97 95 Respiratory Rate 20 17 Blood Pressure 118/87 109/74 Pulse Oximetry 92 95 Oxygen Delivery Room Air 05/09/25 20:12 05/10/25 06:00 05/10/25 14:00 Temperature 97.7 F 98.4 F 97.0 F L Pulse Rate 81 79 75 Respiratory Rate 16 14 16 Blood Pressure 117/75 119/75 123/68 Pulse Oximetry 100 92 95 Oxygen Delivery Intake/Output Intake/Output: Intake & Output 05/07/25 05/08/25 05/09/25 05/10/25 23:59 23:59 23:59 23:59 Intake Total 1890 236 Balance 1890 236 Meds/Results Medications: Active Medications Generic Name Dose Route Start Last Admin Trade Name Freq PRN Reason Stop Dose Admin Acetaminophen 650 mg 05/09/25 16:53 05/10/25 12:53 Acetaminophen 325 Mg Tablet PO 650 mg Q4H PRN Administration Mild Pain (1-3) or Fever Hydrocodone Bitart/Acetaminophen 1 tab 05/09/25 23:49 05/10/25 05:05 Hydrocodone/Acetaminophen (*Crx) 10-325 Mg Tablet PO 1 tab Q6H PRN Administration Pain Rated 4-6 Albuterol 0.63 mg 05/10/25 00:01 Albuterol Sulfate Neb 2.5 Mg/3 Ml Inh INHALATION Q6H PRN shortness of breath or wheezing Bisacodyl 5 mg 05/09/25 16:53 Bisacodyl 5 Mg Tablet Ec PO DAILY PRN Constipation Celecoxib 200 mg 05/10/25 08:00 05/10/25 08:21 Celecoxib 200 Mg Capsule PO 200 mg BIDWM KENNETH Administration Cyclobenzaprine HCl 10 mg 05/10/25 06:00 05/10/25 13:34 Cyclobenzaprine Hcl 10 Mg Tablet PO 10 mg Q8HR KENNETH Administration Fluticasone Propionate 1 spray 05/09/25 23:49 Fluticasone Propionate 0.05% Na Spr 16 Gm Btl (*Bkc) NASAL DAILY PRN ALLERGY SYMPTOMS Gabapentin 600 mg 05/10/25 06:00 05/10/25 13:34 Gabapentin 300 Mg Capsule PO 600 mg Q8HR KENNETH Administration Ceftriaxone Sodium 1 gm/ 50 mls @ 100 mls/hr 05/10/25 15:00 05/10/25 14:36 Sodium Chloride IVPB 100 mls/hr Q24H KENNETH Administration Lisinopril 10 mg 05/10/25 09:00 05/10/25 08:21 Lisinopril 10 Mg Tablet PO 10 mg DAILY KENNETH Administration Ondansetron HCl 4 mg 05/09/25 16:53 05/09/25 18:28 Ondansetron Inj 4 Mg/2 Ml Vial IV PUSH 4 mg Q6H PRN Administration Nausea And Vomiting Pantoprazole Sodium 40 mg 05/10/25 09:00 05/10/25 08:22 Pantoprazole 40 Mg Tablet PO 40 mg Q12HR KENNETH Administration Perflutren Lipid Microsphere 0 ml 05/09/25 17:16 Perflutren Lipid Microspheres 1.5 Ml Vial Diluted To 10 Ml Total Volume IV PUSH 05/12/25 17:16 ONCE PRN adequate visualization Protocol Radiology Results: ITS Impressions Abdomen/Pelvis CT 05/09/25 14:31 IMPRESSION: 1. Mild urothelial enhancement the right renal pelvis suspicious for ascending urinary tract infection pyelitis but without findings to suggest pyelonephritis. 2. Diverticulosis. Chest X-Ray 05/09/25 17:10 Impression: Mild CHF Labs Labs: Laboratory Results - last 24 hr 05/09/25 05/09/25 05/10/25 15:35 19:34 06:08 WBC 8.9 RBC 4.32 Hgb 13.5 Hct 41.0 MCV 94.9 MCH 31.3 MCHC 32.9 RDW 13.3 Plt Count 202 MPV 11.9 H Immature Gran % (Auto) 0.5 Neut % (Auto) 72.1 Lymph % (Auto) 15.6 L [place] % (Auto) 5.3 Eos % (Auto) 6.2 H Baso % (Auto) 0.3 Lymph # (Auto) 1.38 [place] # (Auto) 0.5 Eos # (Auto) 0.6 H Baso # (Auto) 0.0 Abs Immat Gran (auto) 0.04 H Absolute Neuts (auto) 6.4 Absolute Nucleated RBC 0.000 Nucleated RBC % 0.0 Sodium 138 Potassium 4.0 Chloride 103 Carbon Dioxide 30 Anion Gap 5 BUN 18 H Creatinine 0.78 Estim Creat Clear Calc 55 Estimated GFR > 60 Glucose 88 Lactic Acid 1.3 Calcium 8.8 Influenza A (RT-PCR) Negative Influenza B (RT-PCR) Negative RSV (RT-PCR) Negative SARS-CoV-2 RNA (RT-PCR) Negative Quality VTE Prophylaxis VTE prophylaxis: mechanical ordered
[2025-05-10] MEDS: ACETAMINOPHEN/ASPIRIN/CAFFEINE 250-250-65 MG TABLET 1 TABLET PO (16:06)
[2025-05-10 20:02] VITALS: BP 128/75; PULSE 65; RESP 14; TEMP 36.2; O2SAT 95
[2025-05-11] MEDS: GABAPENTIN 300 MG CAPSULE 600 MG PO ×3 (05:44→22:23)
[2025-05-11 06:00] VITALS: BP 132/74; PULSE 71; RESP 14; TEMP 36.3; O2SAT 95
[2025-05-11 06:02] LABS: Hematocrit 41.3 % (37.0-47.0); Hemoglobin 13.5 g/dL (12.0-15.0); Mean Corpuscular HGB Conc 32.7 g/dl (32-36); Mean Corpuscular Hemoglobin 31.3 pg (26-34); Mean Corpuscular Volume 95.8 fl (80-100); Platelet Count Result 210 k/mm3 (150-375); Red Blood Count 4.31 M/mm3 (4.2-5.4); White Blood Count 6.8 K/mm3 (4.5-10.0)
[2025-05-11 06:24] LABS: Anion Gap 3 mmol/L (4-12); Blood Urea Nitrogen 19 mg/dL (7-17); Calcium 9.1 mg/dL (8.4-10.2); Carbon Dioxide 31 mmol/L (22-30); Chloride 103 mmol/L (98-107); Estimated CRCL calculation 58 ml/min; Estimated Glomerular Filt Rate > 60; Glucose 90 mg/dL (65-110); Magnesium 2.2 mg/dL (1.6-2.3); Potassium 5.2 mmol/L (3.4-5.0); Sodium 137 mmol/L (137-145)
[2025-05-11] MEDS: ACETAMINOPHEN/ASPIRIN/CAFFEINE 250-250-65 MG TABLET 1 TABLET PO (06:28)
[2025-05-11 07:35] LABS: Vitamin B12 506.0 pg/mL (239-931)
[2025-05-11] MEDS: BISACODYL 5 MG TABLET EC PO (09:14)
[2025-05-11] MEDS: CELECOXIB 200 MG CAPSULE PO ×2 (09:14→17:57)
[2025-05-11] MEDS: PANTOPRAZOLE 40 MG TABLET PO ×2 (09:15→22:23)
--- NOTE | 2025-05-11 11:31 | PM.IMPN ---
Progress Note: A&P Assessment and Plan (1) Hypertension: Qualifiers: Hypertension type: primary hypertension Qualified Code(s): I10 - Essential (primary) hypertension Code(s): I10 - Essential (primary) hypertension Status: Chronic (2) UTI (urinary tract infection): Qualifiers: Urinary tract infection type: acute cystitis Hematuria presence: without hematuria Qualified Code(s): N30.00 - Acute cystitis without hematuria Code(s): N39.0 - Urinary tract infection, site not specified Status: Acute (3) Acute pyelonephritis: Code(s): N10 - Acute pyelonephritis Status: Acute Plan 70 y/o F with PMH of GERD, HTN, IBS, and diverticulosis presented with fever cough. She had initially difficulty urinating/inability to urinate for 3 days, intermittent right flank pain. She was seen by PCP, diagnosed with UTI, was started on Macrobid, had taken 1 dose. Patient presented with a fever of 100.9. CT abdomen pelvis showed mild urothelial enhancement of right renal pelvis suspicious for ascending UTI. 1. Acute pyelonephritis: Improving leukocytosis Urine culture has finalized with no growth Patient still has mild flank tenderness Blood cultures negative till date Will continue with ceftriaxone despite urine culture being negative 2. Concern for CHF on admission: Echocardiogram with normal EF Does have grade 2 diastolic dysfunction, No symptoms of volume overload Deferred to PCP to refer to Cardiology as an outpatient if needed 3. History of hypertension: Continue with lisinopril 4. DVT prophylaxis: Heparin subQ 5. Disposition: Anticipate discharge within next 24 hours Time Spent With Patient Time: 38 mins Subjective Date/time seen: 05/11/25 11:31 Interval history: No acute events overnight, feeling better Review of Systems Review of Systems: All systems reviewed & are unremarkable except as noted in HPI and below Exam Const: General: comfortable Eyes: Sclera: sclerae normal Neck: Neck: supple Resp: Auscultation: clear to auscultation bilaterally Cardio: Rate: regular rate Rhythm: regular rhythm Neuro: Speech: normal speech Motor exam (neuro): 5/5 motor strength present throughout Extrem: General: normal to inspection Objective Data Vital Signs Vital Signs: Vital Signs - 24 hr 05/10/25 14:00 05/10/25 20:02 05/10/25 20:40 Temperature 97.0 F L 97.2 F L Pulse Rate 75 65 Respiratory Rate 16 14 Blood Pressure 123/68 128/75 Pulse Oximetry 95 95 Oxygen Delivery Room Air 05/11/25 06:00 Temperature 97.4 F L Pulse Rate 71 Respiratory Rate 14 Blood Pressure 132/74 Pulse Oximetry 95 Oxygen Delivery Intake/Output Intake/Output: Intake & Output 05/08/25 05/09/25 05/10/25 05/11/25 23:59 23:59 23:59 23:59 Intake Total 1890 476 636 Balance 1890 476 636 Meds/Results Medications: Active Medications Generic Name Dose Route Start Last Admin Trade Name Freq PRN Reason Stop Dose Admin Acetaminophen/Aspirin/Caffeine 1 tablet 05/10/25 15:05 05/11/25 06:28 Acetaminophen/Aspirin/Caffeine 250-250-65 Mg Tablet PO 1 tablet Q6H PRN Administration headache Hydrocodone Bitart/Acetaminophen 1 tab 05/09/25 23:49 05/10/25 20:37 Hydrocodone/Acetaminophen (*Crx) 10-325 Mg Tablet PO 1 tab Q6H PRN Administration Pain Rated 4-6 Albuterol 0.63 mg 05/10/25 00:01 Albuterol Sulfate Neb 2.5 Mg/3 Ml Inh INHALATION Q6H PRN shortness of breath or wheezing Bisacodyl 5 mg 05/09/25 16:53 05/11/25 09:14 Bisacodyl 5 Mg Tablet Ec PO 5 mg DAILY PRN Administration Constipation Celecoxib 200 mg 05/10/25 08:00 05/11/25 09:14 Celecoxib 200 Mg Capsule PO 200 mg BIDWM KENNETH Administration Fluticasone Propionate 1 spray 05/09/25 23:49 Fluticasone Propionate 0.05% Na Spr 16 Gm Btl (*Bkc) NASAL DAILY PRN ALLERGY SYMPTOMS Gabapentin 600 mg 05/10/25 06:00 05/11/25 05:44 Gabapentin 300 Mg Capsule PO 600 mg Q8HR KENNETH Administration Ceftriaxone Sodium 1 gm/ 50 mls @ 100 mls/hr 05/10/25 15:00 05/10/25 14:36 Sodium Chloride IVPB 100 mls/hr Q24H KENNETH Administration Lisinopril 10 mg 05/10/25 09:00 05/11/25 09:14 Lisinopril 10 Mg Tablet PO 10 mg DAILY KENNETH Administration Ondansetron HCl 4 mg 05/09/25 16:53 05/09/25 18:28 Ondansetron Inj 4 Mg/2 Ml Vial IV PUSH 4 mg Q6H PRN Administration Nausea And Vomiting Pantoprazole Sodium 40 mg 05/10/25 09:00 05/11/25 09:15 Pantoprazole 40 Mg Tablet PO 40 mg Q12HR KENNETH Administration Perflutren Lipid Microsphere 0 ml 05/09/25 17:16 Perflutren Lipid Microspheres 1.5 Ml Vial Diluted To 10 Ml Total Volume IV PUSH 05/12/25 17:16 ONCE PRN adequate visualization Protocol Radiology Results: ITS Impressions Abdomen/Pelvis CT 05/09/25 14:31 IMPRESSION: 1. Mild urothelial enhancement the right renal pelvis suspicious for ascending urinary tract infection pyelitis but without findings to suggest pyelonephritis. 2. Diverticulosis. Chest X-Ray 05/09/25 17:10 Impression: Mild CHF Labs Labs: Laboratory Results - last 24 hr 05/11/25 05/11/25 05:52 05:53 WBC 6.8 RBC 4.31 Hgb 13.5 Hct 41.3 MCV 95.8 MCH 31.3 MCHC 32.7 RDW 13.2 Plt Count 210 MPV 10.2 Sodium 137 Potassium 5.2 H Chloride 103 Carbon Dioxide 31 H Anion Gap 3 L BUN 19 H Creatinine 0.74 Estim Creat Clear Calc 58 Estimated GFR > 60 Glucose 90 Calcium 9.1 Magnesium 2.2 Vitamin B12 506.0 Folate 8.6 Quality VTE Prophylaxis VTE prophylaxis: pharmacologic ordered
--- NOTE | 2025-05-11 12:28 | P.CONNEU_ITS ---
Assessment and Plan Assessment and plan (1) Chronic lower back pain: Code(s): M54.50 - Low back pain, unspecified; G89.29 - Other chronic pain Status: Acute (2) Chronic headache: Code(s): R51.9 - Headache, unspecified; G89.29 - Other chronic pain Status: Acute (3) Neck pain: Code(s): M54.2 - Cervicalgia Status: Acute (4) Tremor of unknown origin: Code(s): R25.1 - Tremor, unspecified Status: Acute Assessment and Plan: (5) Acute pyelonephritis: Code(s): N10 - Acute pyelonephritis Status: Acute (6) SIRS (systemic inflammatory response syndrome): Code(s): R65.10 - Systemic inflammatory response syndrome (SIRS) of non-infectious origin without acute organ dysfunction Status: Acute Plan I do not find any resting or action tremor at this time. Also there is no cogwheeling. I do not see much to suggest Parkinson's disease. If the tremors come on only when she has pain in the neck it could be due to the anxiety provoked by pain she is also on chronic pain management for the lower back pain and gets injections. I have advised the family members to get a video of the event when that happens there is no impairment of consciousness. She lives with the and has a granddaughter who is very only involved in her care. She was here and I have advised her to make out a video and showed to me on the next clinic visit. She did respond very well to Excedrin given last night for headache and this morning she has no pain. She suffer from chronic head and neck pain for last 2 years. 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 I would suggest a follow-up in office with video recording of the tremor episodes if possible. Consult date: 05/11/25 HPI: Rosangela Carrasquillo is a 70 year old female w chronic headache for last 2 years. These occur sporadically and this start from the cervical spine. After that she started to have shaking spell lasting for quite some time doubt any impairment of the consciousness. Her thought that this was due to the stress caused by the headache. Now the granddaughter has brought up that could she have Parkinson disease or other movement disorder. In between the spells patient does not have any difficulty using the hands or legs or has any tremor . She does have history of hypertension on this occasion she has been diagnosed to have urinary tract infection. She states that she was unable to urinate for 3 days. She walks slowly but does not have any memory problems. Her white cell count on admission was very high at 33,000 three thousand and now is down to 8.9. There is a question congestive heart failure however echocardiogram shows normal ejection fraction. 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 She has had some issues the neck also in the past. According to she has degenerative joint disease. An MRI of the brain was performed on 03/23/2025 that shows white matter changes however no other specific or acute abnormality was seen. I noted that she was prescribed Excedrin last night and this morning she has no headache. She is also on Flexeril p.r.n. and gabapentin 600 mg 3 times a day. Review of Systems 2 Review of Systems: The patient lives with the and she does not have any difficulty taking care of herself. All systems reviewed & are unremarkable except as noted in HPI and below PMFSH Past Medical History Medical History (Updated 05/11/25 @ 12:36 by Ruby Garza MD) Tremor of unknown origin Neck pain Chronic headache Chronic lower back pain HLD (hyperlipidemia) Chronic sinusitis Dysphagia Arthritis Abnormal barium swallow Diverticulosis IBS (irritable bowel syndrome) Obesity Hypertension Tobacco abuse Oropharyngeal dysphagia GERD (gastroesophageal reflux disease) Surgical History Surgical History History of tubal ligation History of tonsillectomy Family History Family History Mother Hypertension Heart disease Diabetes mellitus Sibling Cancer Social History Social History Smoking packs per day: 0.5 Smoking cigarettes per day: 10.0 Years smoked: 25 Smoking pack-years: 12.50 Smoking status: Current every day smoker Tobacco type: cigarettes Second hand tobacco smoke exposure: Yes Alcohol intake: never Substance use: current Substance use type: marijuana Other substance usage details: tj proctor has medical card, not an everyday user Last use: t-3 Do You Feel Safe in your Home?: Yes Lack of Transportation: No Lack of Food: Never True Current Housing: I Have Housing Concerned About Future Housing: No Difficulty Paying Gas/Electric Bills: No Difficulty Paying for Meds: No Currently Unemployed: No Education: High School Diploma/GED Difficulty w/ Childcare or Family Care: No Living arrangements: alone Occupation/Education: occupation Gender identity (if verbalized by the patient): Female Spiritual care concerns: No Meds Home Medications and Allergies Home Medications ?Medication ?Instructions ?Recorded ?Confirmed ?Type gabapentin 600 mg tablet 600 mg PO DAILY 08/05/22 History lisinopril 10 mg tablet 10 mg PO DAILY 08/05/2204/20 History albuterol sulfate 0.63 mg/3 mL 0.63 mg inhalation Q6H PRN 04/07/25 05/09/25 History solution for nebulization shortness of breath or wheez ing celecoxib 200 mg capsule 200 mg PO BID 04/07/2505/09 History cyclobenzaprine 10 mg tablet 10 mg PO TID 04/07/25 History esomeprazole magnesium 40 mg 40 mg PO BID 04/07/25 History granules delayed release for susp fluticasone propionate 50 1 spray intranasal PRN 04/0705/09/25 History mcg/actuation nasal spray,suspension (Flonase Allergy Relief) hydrocodone 10 mg-acetaminophen 1 tablet PO Q6H PRN pa in 04/07/25 05/09/25 History 325 mg tablet ondansetron HCl 4 mg tablet 4 mg PO Q6H PRN nausea and vomiting 04/07/25 05/09/25 History Allergies Allergy/AdvReac Type Severity Reaction Status Date / Time ciprofloxacin (From Cipro) Allergy Hives Verified 05/09/25 18:04 Vital Signs Vital Signs - 24 hr 05/10/25 14:00 05/10/25 20:02 05/10/25 20:40 Temperature 97.0 F L 97.2 F L Pulse Rate 75 65 Respiratory Rate 16 14 Blood Pressure 123/68 128/75 Pulse Oximetry 95 95 Oxygen Delivery Room Air 05/11/25 06:00 Temperature 97.4 F L Pulse Rate 71 Respiratory Rate 14 Blood Pressure 132/74 Pulse Oximetry 95 Oxygen Delivery Exam 2 Const: General: cooperative and comfortable HENMT: Head: atraumatic Mouth: Yes oropharynx normal Eyes: Alignment and Position: alignment normal and position normal EOM: E OMs intact bilaterally Neck: Neck: normal visual inspection and supple Resp: Effort & Inspection: normal respiratory effort Skin: General skin exam: normal color Neuro: Cranial nerves: Yes CN's II-XII intact bilaterally, Yes facial symmetry and Yes Midline tongue present Cognition (Neuro): normal cognition Speech: normal speech Motor exam (neuro): 5/5 motor strength present throughout S ensory Exam: normal sensation Coordination: [id number] test normal and Normal rapid alternating movements of the distal upper extremity present (Neuro) Other: Moderate atrophy of the 1st dorsal interossei noted on the left side. No tremor or cogwheeling noted at this time. Gait could not be tested at this time. Extrem: General: normal to inspection Psych: Appearance: well kempt Mental Status: mental status grossly normal Speech and movement: Normal speech and movement present Affect: normal affect Results Labs 05/11/25 05:52 05/11/25 05:53 Labs: Short CBC 05/11/25 Range/Units 05:52 WBC 6.8 (4.5-10.0) K/mm3 Hgb 13.5 (12.0-15.0) g/dL Hct 41.3 (37.0-47.0) % Plt Count 210 (150-375) k/mm3 [facility] 05/11/25 05:53 Sodium 137 Potassium 5.2 H Chloride 103 Carbon Dioxide 31 H BUN 19 H Creatinine 0.74 Glucose 90 Calcium 9.1
[2025-05-11] MEDS: ONDANSETRON INJ 4 MG/2 ML VIAL IV PUSH (13:27)
[2025-05-11] MEDS: HYDROcodone/acetaminophen (*CRX) 10-325 MG TABLET 1 TAB PO ×2 (13:29→22:43)
[2025-05-11 14:00] VITALS: BP 131/96; PULSE 73; RESP 16; TEMP 36.1; O2SAT 95
[2025-05-11] MEDS: cefTRIAXone 1 GM in SODIUM CHLORIDE 0.9% IV 50 ML 100 ML IVPB (15:39)
[2025-05-11 21:26] VITALS: BP 124/70; PULSE 72; RESP 18; TEMP 36.7; O2SAT 91
[2025-05-12 04:24] VITALS: BP 122/81; PULSE 60; RESP 18; TEMP 36.7; O2SAT 93
[2025-05-12] MEDS: GABAPENTIN 300 MG CAPSULE 600 MG PO (05:20)
[2025-05-12] MEDS: PANTOPRAZOLE 40 MG TABLET PO (09:17)
[2025-05-12] MEDS: CELECOXIB 200 MG CAPSULE PO (09:17)
[2025-05-12] MEDS: ACETAMINOPHEN/ASPIRIN/CAFFEINE 250-250-65 MG TABLET 1 TABLET PO (09:21)
[2025-05-12] MEDS: BISACODYL 5 MG TABLET EC PO (09:21)
--- NOTE | 2025-05-12 10:26 | PM.DS ---
DS: Admitting Diagnosis Discharge Date 05/12/25 Admitting Diagnosis Acute pyelonephritis DS: Discharge Diagnosis Discharge Diagnosis (1) Hypertension: Qualifiers: Hypertension type: primary hypertension Qualified Code(s): I10 - Essential (primary) hypertension Code(s): I10 - Essential (primary) hypertension Status: Chronic (2) Recurrent sinusitis: Code(s): J32.9 - Chronic sinusitis, unspecified Status: Acute (3) Acute pyelonephritis: Code(s): N10 - Acute pyelonephritis Status: Acute DS: Summary Hospital Course Reason for hospitalization: Acute pyelonephritis Hospital Course: 70 y/o F with PMH of GERD, HTN, IBS, and diverticulosis presented with fever cough. She had initially difficulty urinating/inability to urinate for 3 days, intermittent right flank pain. She was seen by PCP, diagnosed with UTI, was started on Macrobid, had taken 1 dose. Patient presented with a fever of 100.9. CT abdomen pelvis showed mild urothelial enhancement of right renal pelvis suspicious for ascending UTI. Urine culture turned out to be negative. Blood cultures have been negative to date. Patient was started on ceftriaxone, leukocytosis has improved. Although cultures have been negative, patient was discharged on Ceftin to complete a course given the clinical symptoms which were very suggestive of pyelonephritis. Patient is being discharged home in stable condition Status at Discharge Functional status at discharge: independent ambulation Overall status at discharge: patient is back to baseline Time Spent with Patient Time attestation: Total time spent providing and/or coordinating discharge services: 34 minute Exam Const: General: comfortable Eyes: Sclera: sclerae normal Neck: Neck: supple Resp: Auscultation: clear to auscultation bilaterally Cardio: Rate: regular rate Rhythm: regular rhythm Neuro: Speech: normal speech Motor exam (neuro): 5/5 motor strength present throughout Extrem: General: normal to inspection DS: Data Data Completed and Pending Labs on day of discharge: Preliminary micro results at discharge 05/09/25 19:21 Blood Culture - Preliminary Blood 05/09/25 19:34 Blood Culture - Preliminary Blood Discharge Plan Discharge Attending physician on discharge: Emerald Metz Consulting providers: Moy Wright Discharging Clinician: Emerald Metz Anticipated Discharge Date/Time: 05/12/25 08:23 Patient Disposition: Home Activity: as tolerated Diet: regular Patient Instructions: Antibiotic Form Patient Language: Japanese Stand Alone Forms: General Discharge Information Follow-up/Referrals: Kong,Doug Allen MD [Primary Care Provider, Unknown] - 2 Weeks Ruby Garza MD [Physician, Neurology] - 4 Weeks Discharge Medications: New cefdinir 300 mg capsule 300 mg PO Q12H Qty: 14 0RF Continued celecoxib 200 mg capsule 200 mg PO BID cyclobenzaprine 10 mg tablet 10 mg PO TID ondansetron HCl 4 mg tablet 4 mg PO Q6H PRN (Reason: nausea and vomiting) hydrocodone-acetaminophen 10-325 mg tablet 1 tablet PO Q6H PRN (Reason: pain) fluticasone propionate [Flonase Allergy Relief] 50 mcg/actuation spray,suspension 1 spray intranasal PRN Rx Instructions: administer into each nostril esomeprazole magnesium [address] for susp in packet 40 mg PO BID gabapentin 600 mg tablet 600 mg PO DAILY Patient Comments: pt states tid as needed lisinopril 10 mg tablet 10 mg PO DAILY albuterol sulfate 0.63 mg/3 mL solution for nebulization 0.63 mg inhalation Q6H PRN (Reason: shortness of breath or wheezing) Date of admission: 05/10/25 14:38 Primary Care Provider: Doug Martines Admitting Provider: Dany Richard Attending physician on admission: Dany Richard Condition: Improved
== END 2025-05-12 11:35 | disposition home or self-care (01) | DRG 690 ==
LOC: ANHED 14:34 → ANH3MEDSUR 17:06
PROVIDERS: Emergency Medicine; Nurse Practitioner; Student in an Organized Health Care Education/Training Program; Admitting Provider Internal Medicine; Emergency Provider Student in an Organized Health Care Education/Training Program; PCP Family Medicine; Visit Provider Internal Medicine
DX: N10 Acute pyelonephritis (principal); N30.00 Acute cystitis without hematuria; D72.829 Elevated white blood cell count, unspecified; E78.5 Hyperlipidemia, unspecified; F17.210 Nicotine dependence, cigarettes, uncomplicated; G89.29 Other chronic pain; I11.0 Hypertensive heart disease with heart failure; I50.9 Heart failure, unspecified; J32.9 Chronic sinusitis, unspecified; K21.9 Gastro-esophageal reflux disease without esophagitis; K58.9 Irritable bowel syndrome, unspecified; K57.90 Diverticulosis of intestine, part unspecified, without perforation or abscess without bleeding; M54.50 Low back pain, unspecified; M47.812 Spondylosis without myelopathy or radiculopathy, cervical region; R00.0 Tachycardia, unspecified; Z20.822 Contact with and (suspected) exposure to COVID-19
CPT/HCPCS: 36415; 71045; 74177; 80048; 80053; 81001; 82607; 82746; 83605; 83690; 83735; 85025; 85027; 87040; 87086; 87637; 93306; 96365; 96375; 99285; A9270; G0378; J0696; J1644; J1885; J1938; J2405; J7030; J7120; Q9967